=== PATIENT | female | born 1970 | race Hispanic/Latino ===

== ENCOUNTER 2018-11-13 15:39 | Emergency (ER) | payer SELFPAY ==
[~2018-11-13 15:39] MED LIST: Iopamidol 370 76% 100 ML VIAL ONE; Iopamidol 370 76% 50 ML VIAL FS ONE
[2018-11-13 16:35] LABS: #Lymphocytes 0.7 thou/uL (1.20-3.40); #Monocytes 0.3 thou/uL (0.11-0.59); #Neutrophils 8.2 thou/uL (1.40-6.50); %Basophils 0.3 % (0.0-1.0); %Eosinophils 0.3 % (0.0-10.0); %Lymphocytes 7.7 % (21.0-51.0); %Monocytes 3.3 % (0.0-10.0); %Neutrophils 88.5 % (42.0-75.0); Hemoglobin 15.3 g/dL (12.0-16.0); Mean Corpuscular Hemoglobin 29.9 pg (27.0-31.0); Mean Platelet Volume 7.6 fL (7.4-10.4); Platelet Count 229 thou/uL (130-400); RBC Distribution Width 12.8 % (11.5-14.5); Red Blood Cell (RBC) Count 5.12 mill/uL (4.20-5.40); White Blood Cell (WBC) Count 9.3 thou/uL (4.8-10.8)
[2018-11-13 16:59] LABS: ALT (SGPT) 41 U/L (8-55); AST (SGOT) 32 U/L (5-34); Albumin 4.2 g/dL (3.5-5.0); Alkaline Phosphatase 101 U/L (40-150); Anion Gap 13 mmol/L (10-20); BUN (Urea Nitrogen) 16 mg/dL (7.0-18.7); Bilirubin, Total 0.5 mg/dL (0.2-1.2); Calc. Creatinine Clearance 0 mL/min (70-130); Calcium 9.6 mg/dL (7.8-10.44); Carbon Dioxide 24 mmol/L (22-29); Chloride 104 mmol/L (98-107); Estimated GFR-MDRD Greater than 90; Globulin 4.3 g/dL (2.4-3.5); Glucose 137 mg/dL (70-105); Lipase 10 U/L (8-78); Potassium 4.1 mmol/L (3.5-5.1); Protein, Total 8.5 g/dL (6.0-8.3); Sodium 137 mmol/L (136-145)
[2018-11-13] MEDS ORDERED: Ondansetron PF 4 MG/2 ML Vial ONE (17:02)
[2018-11-13] MEDS ORDERED: Morphine 4 MG/ML VIAL ONE ×2 (17:02→18:01)
[2018-11-13] MEDS ORDERED: metroNIDAZOLE 250 MG TAB ONE (19:35)
[2018-11-13] MEDS ORDERED: Ciprofloxacin 500 MG TAB ONE (19:35)
[2018-11-13] MEDS ORDERED: traMADol HCl 50 MG TAB ONE (19:40)
--- NOTE | 2018-11-13 20:04 | CT ---
CT ABDOMEN WITH CONTRAST CT PELVIS WITH CONTRAST: DATE: 11/13/2018 TIME: 7:12 p.m. HISTORY: A 48-year-old female with acute onset of abdominal pain. COMPARISON: Noncontrast CT of 05/02/2014. TECHNIQUE: IV injection of iodinated contrast media: Isovue-370 100 mL. Oral contrast media: Isovue p.o. FINDINGS: Multiple diverticula throughout the ascending, transverse, descending, and sigmoid colon, especially in the sigmoid colon. Again noted is the region of fat stranding abutting the sigmoid colon on the l eft side of the lower portion of the pelvic cavity. The appearance is very similar, almost identical , to that of the previous CT. Therefore, although this could represent edema, the other possibility is that this could represent scar tissue. There is no abscess or extraluminal gas. No evidence of a ppendicitis. The urinary bladder, bilateral kidneys, abdominal aorta, adrenal glands, pancreas, sple en, and liver appear normal. Cholecystectomy clips in the gallbladder fossa. No small bowel dilatio n. No consolidation or pleural effusion at the lung bases. No pneumoperitoneum or ascites. The toya geoff is absent. IMPRESSION: 1. Pancolonic diverticulosis. 2. Region of fat stranding in the left hemipelvis could either represent a recurrent episode of colo lindsay diverticulitis or scar tissue. 3. Status post hysterectomy and cholecystectomy. RAO Burrows POS: CHANTELLE
--- NOTE | 2018-11-16 10:50 | EKG ---
Test Reason : ER INDICATION Blood Pressure : / mmHG Vent. Rate : 084 BPM Atrial Rate : 084 BPM P-R Int : 166 ms QRS Dur : 098 ms QT Int : 394 ms P-R-T Axes : 026 031 025 degrees QTc Int : 465 ms Normal sinus rhythm Normal ECG Confirmed by RENATO VANN DO ([id number]), business editor KEVIN BOATENG ([id number]) on 11/16/2018 10:50:15 AM Referred By: Confirmed By:RENATO VANN DO
== END 2018-11-13 19:50 | disposition home or self-care (01) ==
LOC: ERS 15:39
DX: K57.32 Diverticulitis of large intestine without perforation or abscess without bleeding (principal); E03.9 Hypothyroidism, unspecified; I10 Essential (primary) hypertension
CPT/HCPCS: 36415; 74177; 80053; 83690; 85025; 93005; 96361; 96374; 96375; 96376; J2270; J2405

== ENCOUNTER 2019-07-19 16:50 | Inpatient (IN) | payer SELFPAY ==
[2019-07-19] MEDS ORDERED: Lidocaine 1% (PF) 30 ML VIAL ONE (17:37)
--- NOTE | 2019-07-19 17:37 | RAD ---
3 views right hand: 07/19/2019 COMPARISON: None HISTORY: Finger injury FINDINGS: There is partial amputation involving the distal aspect of the third finger. There is a pro minent distal soft tissue defect and there has been partial amputation of the distal aspect of the third distal phalanx. No dislocation. IMPRESSION: Partial amputation involving the distal aspect of the third finger involving the soft tis sues and tip of the third distal phalanx.
[2019-07-19] MEDS ORDERED: Adacel (T-DAP) 0.5 ML SYRINGE ONE (18:07)
[2019-07-19] MEDS ORDERED: Bupivacaine PF 0.5% 30 ML VIAL ONE (18:27)
[2019-07-19] MEDS ORDERED: Bacitracin Zinc Ointment 30 gm TUBE ONE (18:27)
[2019-07-19] MEDS ORDERED: Sodium Chloride 0.9% 100 ML ONE (18:33)
[2019-07-19] MEDS ORDERED: Piperacillin/Tazobactam 4.5 GM VIAL ONE (18:33)
[2019-07-19] MEDS ORDERED: Fentanyl 100 MCG/2 ML VIAL ONE ×2 (18:42→21:34)
[2019-07-19] MEDS ORDERED: Bisacodyl 10 MG SUPP PR PRN (19:25)
[2019-07-19] MEDS ORDERED: Milk Of Magnesia 30 ML UDCUP PO PRN (19:25)
[2019-07-19] MEDS ORDERED: Promethazine HCl 25 MG/ML VIAL IM PRN ×2 (19:25→20:49)
[2019-07-19] MEDS ORDERED: Fentanyl 100 MCG/2 ML VIAL SLOW IVP PRN (19:25)
[2019-07-19] MEDS ORDERED: Ondansetron PF 4 MG/2 ML Vial IV PRN (19:25)
[2019-07-19] MEDS ORDERED: Acetaminophen 325 MG TAB PO PRN (19:25)
[2019-07-19] MEDS ORDERED: Meperidine HCl/PF 25 MG/ML VIAL IM PRN (19:29)
[2019-07-19] MEDS ORDERED: Communication Order-Pharmacy FS SCH ×2 (19:30)
[2019-07-19] MEDS ORDERED: HYDROmorphone 2 MG/ML VIAL SLOW IVP PRN (20:49)
[2019-07-19] MEDS ORDERED: PACU-Morphine 4MG/ML VIAL SLOW IVP PRN (20:49)
[2019-07-19] MEDS ORDERED: Promethazine HCl 25 MG/ML VIAL SLOW IVP PRN (20:49)
[2019-07-19] MEDS ORDERED: Ondansetron HCl/PF 4 MG/2 ML Vial IVP PRN (20:49)
[2019-07-19] MEDS ORDERED: Aspirin 81 mg Enteric Coated Tablet PO SCH (21:00)
[2019-07-19] MEDS ORDERED: Metoprolol Tartrate 5 MG/5 ML VIAL ONE (21:42)
--- NOTE | 2019-07-19 22:30 | OP ---
DATE OF PROCEDURE: 07/19/2019 PREOPERATIVE DIAGNOSES: 1. Open fracture with amputation right middle finger at the midportion of the distal phalanx. 2. Wound with nail involvement, same area. PROCEDURES PERFORMED: 1. Debridement, bone. 2. Debridement, wound and material associated with open fracture. 3. Bone shortening, 3 mm. 4. Nail bed repair. 5. 2 x 1 cm full-thickness skin graft. INDICATIONS: The patient had a bite wound from a relative, with open injury in order to have decreased rate of infection, possibly salvage the nail itself and the digit, early intervention was indicated. There was no gross contamination seen. TOURNIQUET TIME: 25 minutes. BLOOD LOSS: Less than 10 mL. DESCRIPTION OF PROCEDURE: After successful general LMA technique, the limb was prepped and draped. The patient had the possible donor site antecubital fossa injected over 2.5 cm area in width, and we did a 10 mL of 0.5% Marcaine block at metacarpophalangeal of this middle finger. We then exsanguinated the limb, inflated tourniquet to 250 mmHg pressure and began to inspect the wound. There was a hematoma covering area of bone approximately 3 mm wide by 0.5 mm deep, so we found the nail bed here and we debrided this with a rongeur until the nail bone edge was appropriate. Then, there was a longitudinal laceration of nail bed and we prepared this. We then used a Pulsavac to finish the debridement after already using the [place] blade, curette, rongeur, and excisional technique to achieve a coverage that was clean and the wound that was clean. There was no particles seen in the wound itself. Once we finished 3 L normal saline Pulsavac irrigation, we then inspected the area and found no further contamination. We then finished removing some excess soft tissue, inspecting the nail and found it to be fine, and then we pulled fat up over the bone edge up to the nail bed that was exposed and sutured this with interrupted 4-0 Monocryl. Once we had done this, we measured the remaining open wound. It was approximately 2 cm x 8 mm, so we harvested a 2 x 1 cm graft elliptical-shaped from the antecubital fossa. We closed this with a deep dermal fold of 4-0 Monocryl and then used Dermabond for the epidermal closure. We then took this graft, defatted it, placed it over the wound, secured it first on the each end with a 4-0 nylon, which would be used as a bolster suture later and then made the repair complete by running a 6-0 chromic over that, and placed bacitracin and Adaptic next to the wound and mineral oil soaked cotton balls were tied down with 4-0 nylons on to the graft site. The hole site was completely covered, we then placed bacitracin and then placed Adaptic only on the donor site, 4x4s, Kerlix, and only a soft dressing with 2 Alpesh wraps on the finger as well as the forearm wound and the patient left the operating room without evidence of anesthetic or operative complication. Job ID: [id number]
[2019-07-19] MEDS: Morphine 4 MG/ML VIAL SLOW IVP PRN (23:10)
[2019-07-19] MEDS: Ketorolac Tromethamine 30 MG/ML VIAL IVP SCH (23:16)
[2019-07-20] MEDS: Morphine 4 MG/ML VIAL SLOW IVP PRN (01:26)
[2019-07-20] MEDS: Sodium Chloride 0.9% 1,000 ML IV SCH ×3 (01:30→15:08)
[2019-07-20] MEDS: HYDROcodone/Acetaminophen 5/325 mg Tablet PO PRN ×5 (01:32→20:45)
[2019-07-20] MEDS: Aspirin 81 mg Enteric Coated Tablet PO SCH ×3 (01:48→20:45)
[2019-07-20] MEDS: Vancomycin HCl 1.5 GM in Sodium Chloride 0.9% 250 ML 300 ML IVPB SCH ×2 (01:57→13:57)
[2019-07-20 02:08] VITALS: BMI 42.4
[2019-07-20] MEDS: Ketorolac Tromethamine 30 MG/ML VIAL IVP SCH ×4 (05:11→23:52)
[2019-07-20 05:50] LABS: #Lymphocytes 0.7 thou/uL (1.20-3.40); #Monocytes 0.1 thou/uL (0.11-0.59); #Neutrophils 3.9 thou/uL (1.40-6.50); %Eosinophils 0.5 % (0.0-10.0); %Lymphocytes 14.5 % (21.0-51.0); %Monocytes 2.1 % (0.0-10.0); %Neutrophils 82.9 % (42.0-75.0); Hemoglobin 13.1 g/dL (12.0-16.0); Mean Corpuscular HGB CONC 33.4 g/dL (32.0-36.0); Mean Corpuscular Hemoglobin 30.2 pg (27.0-31.0); Mean Corpuscular Volume 90.5 fL (78.0-98.0); Platelet Count 193 thou/uL (130-400); RBC Distribution Width 12.8 % (11.5-14.5); Red Blood Cell (RBC) Count 4.33 mill/uL (4.20-5.40); White Blood Cell (WBC) Count 4.7 thou/uL (4.8-10.8)
[2019-07-20] MEDS: traMADol HCl 50 MG TAB PO PRN ×2 (08:50→23:53)
[2019-07-20] MEDS ORDERED: TETANUS AND DIPHTHERIA TOX/PF 0.5 ML DISP.SYRIN IM SCH (09:00)
[2019-07-21] MEDS: Vancomycin HCl 1.5 GM in Sodium Chloride 0.9% 250 ML 300 ML IVPB SCH ×2 (02:42→13:02)
[2019-07-21] MEDS: HYDROcodone/Acetaminophen 5/325 mg Tablet PO PRN ×3 (05:19→17:28)
[2019-07-21] MEDS: Sodium Chloride 0.9% 1,000 ML IV SCH ×2 (05:21→11:10)
[2019-07-21] MEDS: Aspirin 81 mg Enteric Coated Tablet PO SCH (09:54)
[2019-07-21] MEDS: Morphine 4 MG/ML VIAL SLOW IVP PRN (13:01)
[2019-07-21 16:11] VITALS: BP 115/75; TEMP 99.2
== END 2019-07-21 18:14 | disposition home or self-care (01) | DRG 906 ==
LOC: ERS 16:50 → SDC/OP 20:20 → SURG A 21:48
PROVIDERS: ADMIT Orthopaedic Surgery Hand Surgery; ATTEND Orthopaedic Surgery Hand Surgery
PROC: 0HRFX73 Replacement of Right Hand Skin with Autologous Tissue Substitute, Full Thickness, External Approach (ICD-10-PCS; principal; 2019-07-19)
PROC: 0PBT0ZZ Excision of Right Finger Phalanx, Open Approach (ICD-10-PCS; 2019-07-19)
PROC: 0HQQXZZ Repair Finger Nail, External Approach (ICD-10-PCS; 2019-07-19)
PROC: 0HBDXZZ Excision of Right Lower Arm Skin, External Approach (ICD-10-PCS; 2019-07-19)
DX: S68.122A Partial traumatic metacarpophalangeal amputation of right middle finger, initial encounter (principal); I10 Essential (primary) hypertension; W50.3XXA Accidental bite by another person, initial encounter; E03.9 Hypothyroidism, unspecified; Z90.49 Acquired absence of other specified parts of digestive tract; Z90.710 Acquired absence of both cervix and uterus
CPT/HCPCS: 36415; 64450; 80202; 85025; 90471; 90715; 90732; G0009; J1885; J2001; J2270; J2543; J3010; J3370; J3490; J7050; S0020

== ENCOUNTER 2020-04-19 04:01 | Emergency (ER) | payer OTHER, SELFPAY ==
[2020-04-19 04:50] LABS: #Eosinphils 0.1 thou/uL (0.0-0.7); #Monocytes 0.8 thou/uL (0.11-0.59); #Neutrophils 6.8 thou/uL (1.40-6.50); %Basophils 0.3 % (0.0-1.0); %Eosinophils 0.6 % (0.0-10.0); %Lymphocytes 20.6 % (21.0-51.0); %Monocytes 8.4 % (0.0-10.0); Hemoglobin 12.9 g/dL (12.0-16.0); Mean Corpuscular HGB CONC 33.6 g/dL (32.0-36.0); Mean Corpuscular Hemoglobin 29.6 pg (27.0-31.0); Mean Corpuscular Volume 87.9 fL (78.0-98.0); Mean Platelet Volume 7.9 fL (7.4-10.4); Platelet Count 201 thou/uL (130-400); RBC Distribution Width 12.8 % (11.5-14.5); Red Blood Cell (RBC) Count 4.36 mill/uL (4.20-5.40); White Blood Cell (WBC) Count 9.7 thou/uL (4.8-10.8)
[2020-04-19 05:02] LABS: Bilirubin Negative (Negative); Blood, Urine Trace (Negative); Clarity Clear (Clear); Glucose, Urine (Dipstick) Normal (Negative); Leukocyte Negative Leu/uL (Negative); Nitrite Negative (Negative); Protein, Urine (Dipstick) Negative (Neg-Trace); RBC/HPF 0-3 HPF (0-3); Squamous Epithelial 0-3 HPF (0-3); WBC/HPF 0-3 HPF (0-3)
[2020-04-19 05:04] LABS: ALT (SGPT) 18 U/L (8-55); AST (SGOT) 17 U/L (5-34); Alkaline Phosphatase 81 U/L (40-110); Anion Gap 13 mmol/L (10-20); BUN (Urea Nitrogen) 9 mg/dL (7.0-18.7); Bilirubin, Total 0.5 mg/dL (0.2-1.2); Calc. Creatinine Clearance 0 mL/min (70-130); Calcium 8.7 mg/dL (7.8-10.44); Carbon Dioxide 24 mmol/L (22-29); Chloride 106 mmol/L (98-107); Estimated GFR-MDRD Greater than 90; Globulin 3.7 g/dL (2.4-3.5); Glucose 133 mg/dL (70-105); Lipase 5 U/L (8-78); Potassium 3.6 mmol/L (3.5-5.1); Protein, Total 7.7 g/dL (6.0-8.3); Sodium 139 mmol/L (136-145)
[2020-04-19 05:13] LABS: Bacteria/HPF 1+ HPF (None Seen)
[2020-04-19] MEDS ORDERED: Morphine 4 MG/ML VIAL ONE (05:25)
[2020-04-19] MEDS ORDERED: Ketorolac Tromethamine 30 MG/ML VIAL ONE (05:25)
[2020-04-19 05:44] LABS: BHCG - Serum Negative (NEGATIVE); Pregs Control Background? CLEAR/WHITE (CLR/WHITE); Pregs Control Bar Appear? YES (CONTROL BAR)
--- NOTE | 2020-04-19 12:10 | CT ---
CT OF THE ABDOMEN AND PELVIS WITHOUT IV CONTRAST: INDICATION: A 49-year-old female with lower abdominal pain and right-sided back pain. COMPARISON: Prior CT of the abdomen and pelvis dated 11/13/2018. FINDINGS: There is wall thickening and pericolonic inflammatory stranding with scattered with scattered diverti cula involving the sigmoid colon consistent with active noncomplicated sigmoid diverticulitis. There is mild free fluid in the pelvis. There is a normal appendix in the right lower quadrant. No renal or ureteral calculus is evident. There is a small phlebolith within the right gonadal vein. Gallbladder is surgically absent. Unopacified liver, pancreas, adrenal glands, spleen, and kidneys appear within normal limits. No definite acute osseous abnormality is evident. IMPRESSION: Findings of noncomplicated sigmoid diverticulitis. POS: BH
== END 2020-04-19 07:33 | disposition home or self-care (01) ==
LOC: ERS 04:01
DX: K57.30 Diverticulosis of large intestine without perforation or abscess without bleeding (principal); E03.9 Hypothyroidism, unspecified; I10 Essential (primary) hypertension
CPT/HCPCS: 36415; 74176; 80053; 81003; 81015; 83690; 84703; 85025; 96374; 96375; J1885; J2270

== ENCOUNTER 2020-06-17 15:53 | Observation (INO) | payer OTHER, SELFPAY ==
[~2020-06-17 15:53] MED LIST changes: -Iopamidol 370 76% 100 ML VIAL ONE; -Iopamidol 370 76% 50 ML VIAL FS ONE; +Iopamidol-370 76% 500 ML 1 ML ONE
[2020-06-17 16:35] LABS: #Eosinphils 0.1 thou/uL (0.0-0.7); #Monocytes 0.7 thou/uL (0.11-0.59); #Neutrophils 6.4 thou/uL (1.40-6.50); %Basophils 0.2 % (0.0-1.0); %Eosinophils 0.7 % (0.0-10.0); %Lymphocytes 22.1 % (21.0-51.0); %Monocytes 7.7 % (0.0-10.0); %Neutrophils 69.2 % (42.0-75.0); Hemoglobin 13.6 g/dL (12.0-16.0); Mean Corpuscular HGB CONC 32.6 g/dL (32.0-36.0); Mean Corpuscular Hemoglobin 28.8 pg (27.0-31.0); Mean Corpuscular Volume 88.5 fL (78.0-98.0); Mean Platelet Volume 8.8 fL (7.4-10.4); Platelet Count 203 thou/uL (130-400); Red Blood Cell (RBC) Count 4.73 mill/uL (4.20-5.40); White Blood Cell (WBC) Count 9.2 thou/uL (4.8-10.8)
[2020-06-17 17:06] LABS: ALT (SGPT) 17 U/L (8-55); AST (SGOT) 23 U/L (5-34); Albumin 3.8 g/dL (3.5-5.0); Alkaline Phosphatase 92 U/L (40-110); Anion Gap 11 mmol/L (10-20); BUN (Urea Nitrogen) 14 mg/dL (7.0-18.7); Bilirubin, Total 0.3 mg/dL (0.2-1.2); Calc. Creatinine Clearance 0 mL/min (70-130); Calcium 8.7 mg/dL (7.8-10.44); Carbon Dioxide 24 mmol/L (22-29); Chloride 104 mmol/L (98-107); Estimated GFR-MDRD Greater than 90; Globulin 4.2 g/dL (2.4-3.5); Glucose 132 mg/dL (70-105); Potassium 4.4 mmol/L (3.5-5.1); Sodium 135 mmol/L (136-145)
--- NOTE | 2020-06-17 17:12 | CT ---
CT angiogram chest with IV contrast and 3-D imaging CT arteriogram abdomen and pelvis with IV contrast and 3-D imaging HISTORY: Chest and abdomen pain. Radiation to the back. COMPARISON: 04/19/2020. FINDINGS: Tiny nonspecific subpleural nodule within the anterolateral aspect of the right upper lobe. No mediastinal adenopathy or pleural fluid. Gallbladder is surgically absent. No evidence of bowel obstruction or inflammation. Solid organs of the abdomen are intact. Prominent posterior disc bulge at the lumbosacral junction with significant central canal stenosis. P artial lumbarization of the fifth sacral segment. Inflammation and small amount of fluid within the pelvis surrounding a focal area of circumferential wall thickening involving the lower sigmoid colon. Extensive diverticula are apparent throughout the colon. No focal abscess. No free air. Uterus is not visible. Likely surgically absent (versus atr ophy). Good contrast opacification pulmonary arteries and aorta. No evidence of dissection or other acute ab normality. Visceral arteries are patent. Accessory left renal artery to the superior pole noted. IMPRESSION : No acute vascular abnormalities are demonstrated. Acute distal sigmoid diverticulitis is similar in appearance to the 04/19/2020 study. Small amount of free fluid. No evidence of abscess.
--- NOTE | 2020-06-17 17:15 | RAD ---
RADIOGRAPH CHEST 1 VIEW: DATE: 06/17/2020 HISTORY: Chest pain FINDINGS: There are no airspace densities, pulmonary edema, pneumothorax, or cardiomegaly. The lateral costophr enic angles are sharp. IMPRESSION: No acute cardiopulmonary findings.
--- NOTE | 2020-06-17 17:18 | CT ---
CT OF THE BRAIN WITHOUT CONTRAST: 06/17/20 INDICATIONS: History of left sided facial numbness and facial droop. COMPARISON: Prior examination dated 06/10/13. FINDINGS: There is a small extra-axial calcified lesion overlying the left temporal lobe on image 17 of series 2 which is stable and likely reflecting a small meningioma. No acute infarct, hemorrhage or hydroceph alus is present. There is a prominent Virchow-Mehul space involving the inferior left globus pallidus . No midline shift or hydrocephalus is evident. Mastoid air cells and paranasal sinuses are clear. IMPRESSION: 1. No acute intracranial abnormality. 2. Stable small extra-axial meningioma overlying the left temporal lobe. POS: BH
[2020-06-17 18:14] LABS: Bacteria/HPF None Seen HPF (None Seen); Bilirubin Negative (Negative); Blood, Urine Negative (Negative); Clarity Clear (Clear); Glucose, Urine (Dipstick) Normal (Negative); Ketone, Urine Negative (Negative); Leukocyte 25 Leu/uL (Negative); Nitrite Negative (Negative); Protein, Urine (Dipstick) Negative (Neg-Trace); RBC/HPF 0-3 HPF (0-3); Specific Gravity, Urine 1.025 (1.002-1.036); Squamous Epithelial 0-3 HPF (0-3); Urobilinogen 6 mg/dL (Less than 2)
[2020-06-17] MEDS ORDERED: Morphine 4 MG/ML VIAL ONE (18:19)
[2020-06-17] MEDS ORDERED: Piperacillin/Tazobactam 4.5 GM VIAL ONE (18:19)
[2020-06-17 19:40] LABS: Troponin I Less than 0.010 ng/mL (< 0.028)
[2020-06-17] MEDS ORDERED: Acetaminophen 650 MG Suppository PR PRN (20:05)
[2020-06-17] MEDS ORDERED: Acetaminophen 325 MG TAB PO PRN (20:05)
--- NOTE | 2020-06-17 21:06 | PDOC.HHP ---
Hospitalist HPI - History of Present Illness Abdominal pain and chest pain History of Present Illness: Patient presents to the emergency department today with complaints of lower abdominal discomfort that has been severe. She was following up with her primary care physician today due to suprapubic discomfort. She had been placed on a course of antibiotics in March with Cipro and Flagyl due to diverticulitis which she did not complete. She states the pain has been ongoing for the last 3 days and significantly worse today. She states she feels as if she is unable to empty her bladder. She has discomfort when having a bowel movement and when urinating she experiences dysuria. She states she is only able to urinate small quantities at a time. She feels as if she is unable to empty her bladder fully. She states she feels like there is a sensation of having a ball in the lower abdomen. She denies any dysuria. In addition to this she began experiencing discomfort in her chest. She is unable to describe the type of pain she experienced with states that it was small areas of discomfort throughout her chest lasting minutes at a time. Reports feeling as if she cannot catch her breath when this happens her as if she cannot get comfortable. Patient states she has been experiencing blood in the stool for the last 3 months. She reported this to her primary care physician and was told this was likely associated with hemorrhoids given her history of constipation. Patient also complains of itching to the left side of her chest and her back as well as the backside of her neck. Denies starting any new antibiotics and states the itching has been ongoing for the last couple of days. She has not noted any rash or hives. Patient is a poor historian due having a significant amount of difficulty describing exactly how she has been feeling. Denies any nausea or vomiting. Denies hematemesis. Has not had any loose stools. Has not had any recent fevers chills or sweats. No shortness of breath. No cough or hemoptysis. All other review of systems are negative. Of note patient reportedly underwent work-up for possible CVA after presenting with right facial numbness and weakness 2 weeks ago. ED COURSE: The patient was given 324 mg of aspirin in the emergency department as well as nitro sublingual. EKG: demonstrates sinus tachycardia the rate of 107, DE 162, QRS of 94, QTC of 475, QRS axis XX 8 degrees with nonspecific T wave flattening in the inferior leads, axis is normal, conduction normal, ST segments normal. Nonspecific EKG. CXR: No acute cardiopulmonary findings. CT angiogram of the chest: showed no acute vascular abnormalities. Acute distal sigmoid diverticulitis similar in appearance to study done in March 2020. Small amount of free fluid. No evidence of abscess. Per ED notes the patient had described left-sided facial numbness and a facial droop at some time this morning, therefore underwent a CT of the brain which showed no acute intracranial abnormality. Stable small extra-axial meningioma overlying the left temporal lobe. For her severe abdominal discomfort she was given 4 mg of morphine. 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 Denies any illicit drug use. She is fully independent and lives with her . FAMILY HISTORY: Noncontributory ALLERGIES: No known drug allergies. CURRENT MEDICATIONS: Tramadol 50 mg p.o. daily Flagyl 500 mg p.o. twice a day Gabapentin 300 mg p.o. daily Citalopram 10 mg p.o. daily Cipro 500 mg p.o. Hospitalist ROS - Review of Systems All other systems reviewed; all pertinent +/- noted in HPI/Subj - Exam General Appearance: ill appearing (appears to be in some discomfort but NAD.) General - other findings: BP: 174/82, Pulse: 95, Resp: 20, O2 sat: 100 on (Room Air), Time: 06/17/2020 Eye: PERRL, anicteric sclera ENT: normocephalic atraumatic, no oropharyngeal lesions, moist mucosa Neck: supple, no lymphadenopathy Heart: RRR, no murmur, no gallops, no rubs, normal peripheral pulses Respiratory: CTAB, no wheezes, no rales, no ronchi, normal chest expansion, no tachypnea Gastrointestinal: soft (obese), non-distended, no rigidity, voluntary guarding Gastrointestinal - other findings: some discomfort in the suprapubic region Extremities: no edema Skin: normal turgor Skin - other findings: excoriations over left breast, no other rashes Neurological: cranial nerve grossly intact, no focal deficits Musculoskeletal: normal tone, normal strength, no muscle wasting Psychiatric: normal affect, normal behavior, A&O x 3 Hospitalist Results - Labs Result Diagrams: 06/17/20 16:06 06/17/20 16:06 Lab results: WBC 9.2 thou/uL (4.8-10.8) 06/17/20 16:06 Hgb 13.6 g/dL (12.0-16.0) 06/17/20 16:06 Hct 41.8 % (36.0-47.0) 06/17/20 16:06 MCV 88.5 fL (78.0-98.0) 06/17/20 16:06 Plt Count 203 thou/uL (130-400) 06/17/20 16:06 Neutrophils % 69.2 % (42.0-75.0) 06/17/20 16:06 Sodium 135 mmol/L (136-145) L 06/17/20 16:06 Potassium 4.4 mmol/L (3.5-5.1) 06/17/20 16:06 Chloride 104 mmol/L (98-107) 06/17/20 16:06 Carbon Dioxide 24 mmol/L (22-29) 06/17/20 16:06 BUN 14 mg/dL (7.0-18.7) 06/17/20 16:06 Creatinine 0.63 mg/dL (0.6-1.1) 06/17/20 16:06 Glucose 132 mg/dL (70-105) H 06/17/20 16:06 Calcium 8.7 mg/dL (7.8-10.44) 06/17/20 16:06 Total Bilirubin 0.3 mg/dL (0.2-1.2) 06/17/20 16:06 AST 23 U/L (5-34) 06/17/20 16:06 ALT 17 U/L (8-55) 06/17/20 16:06 Alkaline Phosphatase 92 U/L (40-110) 06/17/20 16:06 Troponin I Less than 0.010 ng/mL (< 0.028) 06/17/20 19:05 Serum Total Protein 8.0 g/dL (6.0-8.3) 06/17/20 16:06 Albumin 3.8 g/dL (3.5-5.0) 06/17/20 16:06 Urine Ketones Negative mg/dL (Negative) 06/17/20 16:20 Urine Blood Negative (Negative) 06/17/20 16:20 Urine Nitrite Negative (Negative) 06/17/20 16:20 Ur Leukocyte Esterase 25 Germaine/uL (Negative) A 06/17/20 16:20 Urine RBC 0-3 HPF (0-3) 06/17/20 16:20 Urine WBC 4-6 HPF (0-3) A 06/17/20 16:20 Ur Squamous Epith Cells 0-3 HPF (0-3) 06/17/20 16:20 Urine Bacteria None Seen HPF (None Seen) 06/17/20 16:20 Hospitalist H&P A/P - Problem (1) Chest pain Code(s): R07.9 - CHEST PAIN, UNSPECIFIED Status: Acute (2) Abdominal pain Code(s): R10.9 - UNSPECIFIED ABDOMINAL PAIN Status: Acute (3) Diverticulitis Code(s): K57.92 - DVTRCLI OF INTEST, PART UNSP, W/O PERF OR ABSCESS W/O BLEED Status: Acute (4) Rectal bleeding Code(s): K62.5 - HEMORRHAGE OF ANUS AND RECTUM Status: Acute (5) Itching Code(s): L29.9 - PRURITUS, UNSPECIFIED Status: Acute (6) Dysuria Code(s): R30.0 - DYSURIA Status: Acute (7) Hypertension Code(s): I10 - ESSENTIAL (PRIMARY) HYPERTENSION Status: Chronic (8) Hypothyroidism Code(s): E03.9 - HYPOTHYROIDISM, UNSPECIFIED Status: Chronic - Plan Plan: Cardiac monitoring. Check electrolytes, lipid panel with AM labs, TSH. Consider stress test once GI issues resolved. Echo ordered. Monitor BP. Continue IV antibiotics. Consult GI re: rectal bleeding x 3 months. Has never had a colonoscopy. Obtain post void bladder scan to assess for retention vs. dehydration as cause for decreased urine output. Initiate IV hydration. GI Prophylaxis with Famotidine. DVT prophylaxis with mechanical SCDs. ADDENDUM: Discussed with Dr. Perea who advised no indication for consult, as patient unable to have colonscopy done until diverticulitis flare resolves. Could be done as an outpatient.
[2020-06-17 21:33] VITALS: BMI 42.6
[2020-06-17] MEDS: Sodium Chloride 0.9% 1,000 ML IV SCH (21:33)
[2020-06-17] MEDS: metroNIDAZOLE 500 MG in Premix Bag 1 BAG IVPB SCH (21:40)
[2020-06-17] MEDS: Famotidine/PF 20 mg/2ml Vial SLOW IVP SCH (21:41)
[2020-06-17] MEDS: Morphine 2 MG/ML VIAL SLOW IVP PRN (21:47)
[2020-06-17] MEDS ORDERED: diphenhydrAMINE 25 MG CAP PO SCH (22:00)
[2020-06-18 04:54] LABS: #Eosinphils 0.1 thou/uL (0.0-0.7); #Lymphocytes 1.7 thou/uL (1.20-3.40); #Monocytes 0.6 thou/uL (0.11-0.59); %Basophils 0.1 % (0.0-1.0); %Eosinophils 1.2 % (0.0-10.0); %Lymphocytes 22.6 % (21.0-51.0); %Monocytes 7.9 % (0.0-10.0); %Neutrophils 68.2 % (42.0-75.0); Hemoglobin 12.4 g/dL (12.0-16.0); Mean Corpuscular HGB CONC 33.1 g/dL (32.0-36.0); Mean Corpuscular Hemoglobin 29.4 pg (27.0-31.0); Mean Corpuscular Volume 88.9 fL (78.0-98.0); Mean Platelet Volume 7.5 fL (7.4-10.4); Platelet Count 216 thou/uL (130-400); RBC Distribution Width 12.7 % (11.5-14.5); Red Blood Cell (RBC) Count 4.23 mill/uL (4.20-5.40); White Blood Cell (WBC) Count 7.3 thou/uL (4.8-10.8)
[2020-06-18 05:17] LABS: Anion Gap 12 mmol/L (10-20); BUN (Urea Nitrogen) 9 mg/dL (7.0-18.7); Calc. Creatinine Clearance 225 mL/min (70-130); Calcium 8.5 mg/dL (7.8-10.44); Carbon Dioxide 26 mmol/L (22-29); Cardiac Risk 4.1 (Less than 4.5); Chloride 104 mmol/L (98-107); Cholesterol 128 mg/dl (< 200 Desired); Estimated GFR-MDRD Greater than 90; Glucose 120 mg/dL (70-105); HDL Cholesterol 31 mg/dL (>60 Neg Risk); LDL Cholesterol, Calculated 80 mg/dL; Potassium 3.8 mmol/L (3.5-5.1); Sodium 138 mmol/L (136-145); Triglycerides 83 mg/dL (Less than 150)
[2020-06-18] MEDS: metroNIDAZOLE 500 MG in Premix Bag 1 BAG IVPB SCH ×3 (05:54→22:20)
[2020-06-18] MEDS: Levothyroxine Sodium 100 MCG TAB PO SCH (05:55)
[2020-06-18] MEDS: Morphine 2 MG/ML VIAL SLOW IVP PRN (06:07)
[2020-06-18] MEDS: Famotidine/PF 20 mg/2ml Vial SLOW IVP SCH (09:58)
[2020-06-18] MEDS: Lisinopril/Hydrochlorothiazide 20 mg/12.5 mg Tablet PO SCH (09:58)
[2020-06-18] MEDS: Citalopram 10 MG TAB PO SCH (09:58)
[2020-06-18] MEDS: Gabapentin 300 MG CAP PO SCH ×2 (09:59→19:59)
[2020-06-18] MEDS ORDERED: diphenhydrAMINE 25 MG CAP PO PRN (11:04)
[2020-06-18] MEDS: traMADol HCl 50 MG TAB PO PRN ×2 (12:49→18:58)
[2020-06-18] MEDS: Sodium Chloride 0.9% 1,000 ML IV SCH ×2 (12:52→21:44)
[2020-06-18 13:54] LABS: SARS-CoV-2 MS2 Positive; SARS-CoV-2 N Gene Negative; SARS-CoV-2 S Gene Negative; SARS-CoV-2 by NAA Not Detected (NotDetected); SARS-CoV-2 orf1ab Negative
--- NOTE | 2020-06-18 15:51 | PDOC.HOSPP ---
- Subjective Encounter Date: 06/18/20 Encounter Time: 13:30 Subjective: Patient seen and examined for diverticulitis with chest pain. Chest discomfort improved. No nausea, vomiting, diaphoresis or syncope. Continues to have abdominal discomfort. No new episodes of GI bleeding. - Objective Vital Signs & Weight: Vital Signs (12 hours) Temp Pulse Resp BP BP Pulse Ox 06/18/20 15:33 98.2 F 80 20 110/67 94 L 06/18/20 11:39 97.8 F 75 18 127/74 95 06/18/20 09:58 131/85 06/18/20 07:25 97.7 F 77 18 131/85 98 06/18/20 04:33 79 18 136/73 97 06/18/20 04:17 77 Weight Weight 256 lb 7 oz I&O: 06/17/20 06/18/20 06/19/20 06:59 06:59 06:59 Intake Total 550 Output Total 2100 Balance -1550 Result Diagrams: 06/18/20 04:33 06/18/20 04:33 Radiology Reviewed by me: Yes (CTacute sigmoid diverticulitis) EKG Reviewed by me: Yes (Sinus rhythm on telemetry) Hospitalist ROS - Review of Systems Respiratory: denies: cough, dry, shortness of breath, hemoptysis, SOB with excertion, pleuritic pain, sputum, wheezing, other Genitourinary: denies: dysuria, frequency, incontinence, hematuria, retention, other - Medication Medications: Active Medications Generic Name Dose Route Start Last Admin Trade Name Freq PRN Reason Stop Dose Admin Acetaminophen 650 mg 06/17/20 20:05 06/18/20 09:58 Tylenol PO 650 mg Q4H PRN Administration Headache/Fever/Mild Pain (1-3) Citalopram Hydrobromide 10 mg 06/18/20 09:00 06/18/20 09:58 Celexa PO 10 mg DAILY ROB Administration Diphenhydramine HCl 25 mg 06/18/20 11:04 06/18/20 11:20 Benadryl PO 25 mg Q6H PRN Administration Itching & Insomnia Gabapentin 300 mg 06/18/20 09:00 06/18/20 09:59 Neurontin PO 300 mg BID ROB Administration Lisinopril/HCTZ 1 tab 06/18/20 09:00 06/18/20 09:58 Prinizide 20-12.5 PO 1 tab DAILY ROB Administration Sodium Chloride 1,000 mls @ 65 mls/hr 06/17/20 20:15 06/18/20 12:52 Normal Saline 0.9% IV Not Given .[id number] ROB Ciprofloxacin/Dextrose 400 mg/ 200 mls @ 200 mls/hr 06/18/20 09:00 06/18/20 09:59 Device IVPB 200 mls Q12HR ROB Administration Metronidazole 500 mg/ Device 100 mls @ 100 mls/hr 06/17/20 22:00 06/18/20 05: 54 IVPB 100 mls Q8HR ROB Administration Levothyroxine Sodium 200 mcg 06/18/20 06:00 06/18/20 05:55 Synthroid PO 200 mcg 0600 ROB Administration Tramadol HCl 50 mg 06/18/20 11:05 06/18/20 12:49 Ultram PO 50 mg Q4H PRN Administration Moderate Pain (4-6) - Exam General - other findings: In distress due to abdominal pain Neck: supple, symmetric, no JVD Heart: RRR, no gallops, no rubs, normal peripheral pulses Respiratory: no wheezes, no rales, no ronchi, normal chest expansion Gastrointestinal: soft, normal bowel sounds, no guarding, no rigidity Gastrointestinal - other findings: Tenderness in the lower quadrant Neurological: no new deficit Psychiatric: normal affect, A&O x 3 Hosp A/P - Plan DVT proph w/SCDs Acute sigmoid diverticulitis Chest discomfortacute coronary syndrome ruled out Rectal bleedingresolved Hypertension Hypothyroidism Morbid obesity with a BMI of 42.7 Hyponatremia Plan: Abdominal pain still uncontrolled. Patient received 1 dose of morphine earlier. We will continue IV ciprofloxacin and Flagyl for now. Echocardiogram pending at this time. Add probiotic. Consult dietitian for dietary modification for diverticulosis. Continue levothyroxine and lisinopril. Continue gentle hydration. Discharge home once abdominal pain improves after echocardiogram.
[2020-06-18] MEDS: Famotidine 20 MG TAB PO SCH (19:59)
[2020-06-18] MEDS ORDERED: Ketorolac Tromethamine 30 MG/ML VIAL IVP SCH (21:15)
[2020-06-18] MEDS ORDERED: Ondansetron PF 4 MG/2 ML Vial IVP SCH (21:15)
[2020-06-18] MEDS ORDERED: Morphine 2 MG/ML VIAL SLOW IVP SCH (21:15)
[2020-06-18] MEDS ORDERED: Promethazine HCl 12.5 MG in Sodium Chloride 0.9% 50 ML IVPB SCH (21:30)
[2020-06-19] MEDS: Levothyroxine Sodium 100 MCG TAB PO SCH (05:31)
[2020-06-19] MEDS: traMADol HCl 50 MG TAB PO PRN (05:31)
[2020-06-19] MEDS: metroNIDAZOLE 500 MG in Premix Bag 1 BAG IVPB SCH (05:32)
[2020-06-19] MEDS: Lisinopril/Hydrochlorothiazide 20 mg/12.5 mg Tablet PO SCH (07:56)
[2020-06-19] MEDS: Famotidine 20 MG TAB PO SCH (07:56)
[2020-06-19] MEDS: Gabapentin 300 MG CAP PO SCH (07:57)
[2020-06-19] MEDS: Citalopram 10 MG TAB PO SCH (07:57)
[2020-06-19] MEDS ORDERED: Saccharomyces boulardii 250 MG CAP PO SCH (09:00)
[2020-06-19] MEDS ORDERED: Lisinopril/Hydrochlorothiazide 20 mg/12.5 mg Tablet PO SCH (10:00)
[2020-06-19] MEDS ORDERED: Acetaminophen/Codeine 30-300mg Tablet PO PRN (10:02)
[2020-06-19 11:18] VITALS: TEMP 98.5
[2020-06-19 13:30] VITALS: BP 135/89
--- NOTE | 2020-06-19 14:07 | DIS ---
DATE OF ADMISSION: 06/17/2020 DATE OF DISCHARGE: 06/19/2020 DISCHARGE DISPOSITION: Home. FOLLOWUP: 1. Follow up with [facility] in 1 week. 2. Follow up with GI Clinic as outpatient for colonoscopy. DISCHARGE MEDICATIONS: 1. Ciprofloxacin 500 mg b.i.d. for 5 days. 2. Flagyl 500 mg 3 times daily for 5 days. 3. Probiotics. All other home medications were left unchanged. The patient was counseled on dietary modification for diverticulitis. The patient was evaluated on the day of discharge. Denies any new complaints. Abdominal pain has significantly improved. Tolerating GI soft diet. BRIEF HOSPITAL COURSE: The patient is a 49-year-old female, who presented to the emergency room with abdominal and chest discomfort. Her workup was consistent with acute sigmoid diverticulitis, which was managed conservatively. She tolerated clear liquid diet and has been transitioned to GI soft diet. She was counseled on dietary modification for diverticulosis. IV antibiotics have been transitioned to oral. The patient had some atypical chest discomfort on admission. Her troponins remain negative. An echocardiogram was performed that showed ejection fraction 50% to 55% with moderate mitral regurgitation, mild tricuspid regurgitation, and mild pulmonic regurgitation. She will benefit from a stress test as outpatient once acute GI issues resolved. She is pain free at the time of discharge. Weight loss was recommended. FINAL DIAGNOSES: 1. Acute distal sigmoid diverticulitis. A colonoscopy as outpatient is recommended. 2. Morbid obesity with a BMI of 42.7. 3. Chest discomfort, atypical. Acute coronary syndrome ruled out. 4. Questionable rectal bleeding, resolved. 5. Hypertension. 6. Hypothyroidism. 7. Hyponatremia. The patient understands the above plan of care. Job ID: [id number]
[2020-06-20] MEDS ORDERED: Lisinopril/Hydrochlorothiazide 20 mg/12.5 mg Tablet PO SCH (09:00)
--- NOTE | 2020-06-26 15:32 | EKG ---
Test Reason : Blood Pressure : / mmHG Vent. Rate : 107 BPM Atrial Rate : 107 BPM P-R Int : 162 ms QRS Dur : 094 ms QT Int : 356 ms P-R-T Axes : 022 028 011 degrees QTc Int : 475 ms Sinus tachycardia Nonspecific T wave abnormality Abnormal ECG Confirmed by RENATO VANN DO ([id number]), video effects editor KEVIN BOATENG ([id number]) on 06/26/2020 3:32:39 PM Referred By: Confirmed By:RENATO VANN DO
== END 2020-06-19 13:31 | disposition home or self-care (01) ==
LOC: ERS 15:53 → 2SW 18:30
PROVIDERS: ADMIT Internal Medicine; ATTEND Internal Medicine
DX: K57.33 Diverticulitis of large intestine without perforation or abscess with bleeding (principal); R07.89 Other chest pain; I10 Essential (primary) hypertension; E03.9 Hypothyroidism, unspecified; E87.1 Hypo-osmolality and hyponatremia; I08.1 Rheumatic disorders of both mitral and tricuspid valves; E66.01 Morbid (severe) obesity due to excess calories; Z68.41 Body mass index [BMI] 40.0-44.9, adult; Z79.899 Other long term (current) drug therapy; Z20.828 Contact with and (suspected) exposure to other viral communicable diseases
CPT/HCPCS: 36415; 70450; 71045; 71275; 72191; 74175; 80048; 80053; 80061; 81003; 81015; 83735; 83880; 84443; 84484; 85025; 87635; 93005; 93306; 94760; 96361; 96365; 96366; 96367; 96375; 96376; G0378; J0744; J2270; J2543; J2550; Q0163; Q9967; S0028; U0003

== ENCOUNTER 2020-09-12 14:23 | Observation (INO) | payer SELFPAY ==
[2020-09-12 15:14] LABS: Bacteria/HPF None Seen HPF (None Seen); Bilirubin Negative (Negative); Blood, Urine 1+ (Negative); Clarity Clear (Clear); Glucose, Urine (Dipstick) Normal (Negative); Ketone, Urine Negative (Negative); Leukocyte 25 Leu/uL (Negative); Nitrite Negative (Negative); Protein, Urine (Dipstick) Negative (Neg-Trace); RBC/HPF 0-3 HPF (0-3); Specific Gravity, Urine 1.022 (1.002-1.036); Squamous Epithelial 0-3 HPF (0-3); Urobilinogen Normal mg/dL (Less than 2); WBC/HPF 0-3 HPF (0-3); pH, Urine 5.5 (5.0-9.0)
[2020-09-12 15:15] LABS: #Eosinphils 0.1 thou/uL (0.0-0.7); #Lymphocytes 1.7 thou/uL (1.20-3.40); #Monocytes 0.6 thou/uL (0.11-0.59); %Basophils 0.2 % (0.0-1.0); %Eosinophils 1.4 % (0.0-10.0); %Lymphocytes 20.4 % (21.0-51.0); %Monocytes 6.7 % (0.0-10.0); %Neutrophils 71.3 % (42.0-75.0); Hemoglobin 12.8 g/dL (12.0-16.0); Mean Corpuscular HGB CONC 33.5 g/dL (32.0-36.0); Mean Corpuscular Volume 89.5 fL (78.0-98.0); Mean Platelet Volume 8.2 fL (7.4-10.4); Platelet Count 249 thou/uL (130-400); RBC Distribution Width 13.4 % (11.5-14.5); Red Blood Cell (RBC) Count 4.27 mill/uL (4.20-5.40); White Blood Cell (WBC) Count 8.4 thou/uL (4.8-10.8)
--- NOTE | 2020-09-12 15:23 | RAD ---
Exam: Chest one view HISTORY:Abdominal pain Comparison: 06/17/2020 FINDINGS: Cardiac silhouette: Normal Aorta: Unremarkable Pulmonary vessels: Normal Costophrenic angles: Clear LUNGS: No masses or consolidation. Pneumothorax: None Osseous abnormalities: None IMPRESSION: No acute cardiopulmonary process.
[2020-09-12 15:24] LABS: ALT (SGPT) 16 U/L (8-55); AST (SGOT) 17 U/L (5-34); Albumin 3.8 g/dL (3.5-5.0); Alkaline Phosphatase 83 U/L (40-110); Anion Gap 15 mmol/L (10-20); BUN (Urea Nitrogen) 7 mg/dL (9.8-20.1); Bilirubin, Total 0.4 mg/dL (0.2-1.2); Calc. Creatinine Clearance 0 mL/min (70-130); Calcium 8.9 mg/dL (7.8-10.44); Carbon Dioxide 21 mmol/L (22-29); Chloride 107 mmol/L (98-107); Estimated GFR-MDRD Greater than 90; Globulin 4.2 g/dL (2.4-3.5); Glucose 119 mg/dL (70-105); Potassium 3.8 mmol/L (3.5-5.1); Sodium 139 mmol/L (136-145)
[2020-09-12] MEDS ORDERED: Iopamidol-370 76% 500 ML 1 ML ONE (16:06)
[2020-09-12] MEDS ORDERED: Morphine 4 MG/ML VIAL ONE ×2 (16:12→19:54)
[2020-09-12] MEDS ORDERED: Ondansetron PF 4 MG/2 ML Vial ONE (16:12)
--- NOTE | 2020-09-12 16:51 | CT ---
CT Abdomen Pelvis W Con: 09/12/2020 4:29 PM CLINICAL INFORMATION: Abdominal pain and constipation COMPARISON: 11/13/2018, 05/02/2014 TECHNIQUE: Multiple contiguous axial images were obtained and a CT of the abdomen and pelvis with IV contrast. C oronal and sagittal reformats were performed. FINDINGS: Lower Chest: within normal limits. Abdomen: Liver: within normal limits. Bile Ducts: Normal caliber. Gallbladder: Removed Pancreas: within normal limits. Spleen: within normal limits. Adrenals: within normal limits. Kidneys: within normal limits. Pelvis: Reproductive Organs: Status post hysterectomy. Ureters: within normal limits. Bladder: within normal limits. Peritoneum: No free air is seen. Stranding changes are seen surrounding the cecum and appendix. No fr ee fluid or focal fluid collection is seen in the abdomen or pelvis. Bowel: Normal caliber. Scattered diverticula in the colon. Scarring is seen surrounding the diverticu la in the pelvis. There is also questionable stranding change surrounding some of the diverticula in the pelvis. The patient appears to have a very short appendix containing an appendicolith. This ap pendicolith was not seen on the prior examinations. Mesentery and Retroperitoneum: No enlarged mesenteric or retroperitoneal lymph nodes. Vessels: Normal. Abdominal Wall: within normal limits. Bones: Degenerative changes in the spine. IMPRESSION: 1. Acute appendicitis 2. Acute diverticulitis
[2020-09-12] MEDS ORDERED: Piperacillin/Tazobactam 4.5 GM VIAL ONE (16:59)
[2020-09-12] MEDS ORDERED: Fentanyl 100 MCG/2 ML VIAL ONE (17:31)
[2020-09-12] MEDS ORDERED: Morphine 4 MG/ML VIAL SLOW IVP PRN (21:13)
[2020-09-12] MEDS ORDERED: Sodium Chloride 0.9% 1,000 ML IV SCH (21:15)
[2020-09-12] MEDS ORDERED: Ondansetron PF 4 MG/2 ML Vial IVP PRN (21:15)
[2020-09-12] MEDS ORDERED: Ondansetron ODT 4 MG TAB SL PRN (21:15)
[2020-09-12] MEDS: Sodium Chloride 0.9% 1,000 ML IV SCH (22:00)
[2020-09-12 22:11] VITALS: BMI 42.4
[2020-09-12] MEDS ORDERED: Promethazine HCl 25 MG/ML VIAL IM PRN (22:42)
[2020-09-12] MEDS ORDERED: Dextrose 50% Abboject 50 ML SYRINGE SLOW IVP PRN (22:42)
[2020-09-12] MEDS ORDERED: hydrALAZINE 20 MG/ML VIAL SLOW IVP PRN (22:42)
[2020-09-12] MEDS ORDERED: Dextrose 5% in Water 1,000 ML IV PRN (22:42)
[2020-09-12] MEDS ORDERED: Morphine 2 MG/ML VIAL SLOW IVP PRN (22:42)
[2020-09-12] MEDS ORDERED: Famotidine/PF 20 mg/2ml Vial SLOW IVP SCH (23:15)
[2020-09-12] MEDS ORDERED: Gabapentin 300 MG CAP PO SCH (23:15)
[2020-09-12] MEDS: Piperacillin/Tazobactam 4.5 GM in Sodium Chloride 0.9% 100 ML IVPB SCH (23:57)
[2020-09-13] MEDS: Acetaminophen 325 MG TAB PO PRN ×2 (00:20→12:56)
[2020-09-13] MEDS: Piperacillin/Tazobactam 3.375 GM in Sodium Chloride 0.9% 100 ML IVPB SCH ×4 (00:21→17:26)
[2020-09-13] MEDS: Morphine 4 MG/ML VIAL SLOW IVP PRN ×3 (00:39→12:52)
[2020-09-13] MEDS: Ondansetron PF 4 MG/2 ML Vial IVP PRN ×2 (01:17→12:51)
[2020-09-13 05:33] LABS: SARS-CoV-2 MS2 Positive; SARS-CoV-2 N Gene Negative; SARS-CoV-2 S Gene Negative; SARS-CoV-2 by NAA Not Detected (NotDetected); SARS-CoV-2 orf1ab Negative
[2020-09-13] MEDS: Piperacillin/Tazobactam 4.5 GM in Sodium Chloride 0.9% 100 ML IVPB SCH (05:52)
[2020-09-13 06:24] LABS: #Lymphocytes 1.1 thou/uL (1.20-3.40); #Monocytes 0.5 thou/uL (0.11-0.59); #Neutrophils 6.3 thou/uL (1.40-6.50); %Basophils 0.3 % (0.0-1.0); %Eosinophils 0.5 % (0.0-10.0); %Lymphocytes 13.7 % (21.0-51.0); %Monocytes 6.4 % (0.0-10.0); %Neutrophils 79.1 % (42.0-75.0); Hemoglobin 12.2 g/dL (12.0-16.0); Mean Corpuscular HGB CONC 32.1 g/dL (32.0-36.0); Mean Corpuscular Hemoglobin 28.3 pg (27.0-31.0); Mean Corpuscular Volume 88.3 fL (78.0-98.0); Mean Platelet Volume 7.1 fL (7.4-10.4); Platelet Count 233 thou/uL (130-400)
[2020-09-13] MEDS: Levothyroxine Sodium 100 MCG TAB PO SCH (06:28)
[2020-09-13] MEDS: Sodium Chloride 0.9% 1,000 ML IV SCH ×3 (06:43→21:17)
[2020-09-13 06:45] LABS: Anion Gap 12 mmol/L (10-20); BUN (Urea Nitrogen) 5 mg/dL (9.8-20.1); Calc. Creatinine Clearance 229 mL/min (70-130); Calcium 8.5 mg/dL (7.8-10.44); Carbon Dioxide 26 mmol/L (22-29); Chloride 103 mmol/L (98-107); Estimated GFR-MDRD Greater than 90; Glucose 131 mg/dL (70-105); Potassium 3.7 mmol/L (3.5-5.1); Sodium 137 mmol/L (136-145)
[2020-09-13] MEDS: HYDROcodone/Acetaminophen 10/325 mg Tablet PO PRN ×3 (09:20→21:16)
[2020-09-13] MEDS: Citalopram 10 MG TAB PO SCH (09:20)
[2020-09-13] MEDS: Lisinopril/Hydrochlorothiazide 20 mg/12.5 mg Tablet PO SCH (09:20)
[2020-09-13] MEDS: Famotidine 20 MG TAB PO SCH ×2 (09:20→21:15)
[2020-09-13] MEDS: Gabapentin 300 MG CAP PO SCH ×2 (09:20→21:15)
[2020-09-13] MEDS: Famotidine/PF 20 mg/2ml Vial SLOW IVP SCH ×2 (09:21→21:17)
--- NOTE | 2020-09-13 15:28 | PRG ---
DATE OF SERVICE: 09/13/2020 SUBJECTIVE: Ms. Chun's abdominal pain is better. She has no nausea. She is hungry. She is complaining of [id number] headache. OBJECTIVE: VITAL SIGNS: She is afebrile. Vital signs are stable. ABDOMEN: Minimally tender in the right abdomen. No guarding or rebound. Left-sided tenderness is better. LABORATORY DATA: White blood cell count this morning is 8 with a normal differential. Creatinine 0.53. ASSESSMENT: Simultaneous cecal diverticulitis versus appendiceal stumpitis and sigmoid diverticulitis. PLAN: Continue IV antibiotics. We will allow for full liquids. Try Evans for headache. Job ID: [id number]
[2020-09-13] MEDS ORDERED: Enoxaparin Sodium 40 MG/0.4 ML SYRINGE SC SCH (21:00)
[2020-09-13] MEDS ORDERED: FLU VACC QS2020-21(6MOS UP)/PF 60 MCG/0.5 ML SYRINGE IM ONE (21:00)
--- NOTE | 2020-09-13 22:03 | HP ---
CHIEF COMPLAINT: Abdominal pain. HISTORY OF PRESENT ILLNESS: This is a 50-year-old female, who presents with a history of pain that is sharp, 8/10 in the lower abdomen, left is worse than right, associated with nausea. No vomiting. No change in stools. No chronic abdominal pain. She has had similar episode before, where she was found to have diverticulitis. At this time, she does have CT evidence of diverticulitis in the sigmoid colon and around the cecum. There is question of appendiceal stumpitis from previous appendectomy. She states her appendectomy was done in [place] a few decades ago. No problems with that since. No significant complications of that procedure. PAST MEDICAL HISTORY: Includes hypertension, hypothyroid, and chronic left hip pain. MEDICATIONS: Taken daily include: 1. Lisinopril. 2. Hydrochlorothiazide. 3. Levothyroxine. 4. Gabapentin. 5. Celexa. SOCIAL HISTORY: No smoking or alcohol or other drugs. ALLERGIES: NO KNOWN DRUG ALLERGIES. REVIEW OF SYSTEMS: Ten-system review of systems is otherwise negative unless described above. PHYSICAL EXAMINATION: VITAL SIGNS: Blood pressure is 109/62, pulse 85, respirations 20, and she is afebrile. HEENT: Sclerae anicteric. Oropharynx is clear. NECK: No lymphadenopathy. CHEST: Clear. HEART: Regular rate. ABDOMEN: Soft. Tender in the lower abdomen, left worse than right. No guarding or rebound. No abdominal or inguinal hernias. EXTREMITIES: No ischemia or edema to extremities. IMAGING: CT scan shows as above. LABORATORY DATA: White cell count is normal. Creatinine normal. ASSESSMENT: Diverticulitis, questionable appendiceal stumpitis. PLAN: Admit her for IV antibiotics. Hopefully, expectation she will improve without surgery, converted to oral antibiotics over the next few days and will be discharged home. If not, she will undergo colon resection. Job ID: [id number]
[2020-09-14] MEDS: Piperacillin/Tazobactam 3.375 GM in Sodium Chloride 0.9% 100 ML IVPB SCH ×3 (00:01→12:30)
[2020-09-14] MEDS: Acetaminophen 325 MG TAB PO PRN (00:01)
[2020-09-14 05:42] LABS: #Eosinphils 0.1 thou/uL (0.0-0.7); #Lymphocytes 1.9 thou/uL (1.20-3.40); #Monocytes 0.5 thou/uL (0.11-0.59); #Neutrophils 4.6 thou/uL (1.40-6.50); %Basophils 0.4 % (0.0-1.0); %Eosinophils 1.5 % (0.0-10.0); %Lymphocytes 27.3 % (21.0-51.0); %Monocytes 6.8 % (0.0-10.0); Hemoglobin 11.4 g/dL (12.0-16.0); Mean Corpuscular HGB CONC 31.6 g/dL (32.0-36.0); Mean Corpuscular Volume 88.5 fL (78.0-98.0); Mean Platelet Volume 7.1 fL (7.4-10.4); Platelet Count 235 thou/uL (130-400); Red Blood Cell (RBC) Count 4.07 mill/uL (4.20-5.40); White Blood Cell (WBC) Count 7.1 thou/uL (4.8-10.8)
[2020-09-14] MEDS: Levothyroxine Sodium 100 MCG TAB PO SCH (05:51)
[2020-09-14] MEDS: HYDROcodone/Acetaminophen 10/325 mg Tablet PO PRN ×2 (05:57→12:35)
[2020-09-14] MEDS: Gabapentin 300 MG CAP PO SCH (09:04)
[2020-09-14] MEDS: Citalopram 10 MG TAB PO SCH (09:06)
[2020-09-14] MEDS: Sodium Chloride 0.9% 1,000 ML IV SCH (09:06)
[2020-09-14] MEDS: Famotidine 20 MG TAB PO SCH (09:06)
[2020-09-14] MEDS: Famotidine/PF 20 mg/2ml Vial SLOW IVP SCH (09:19)
[2020-09-14] MEDS: Lisinopril/Hydrochlorothiazide 20 mg/12.5 mg Tablet PO SCH (09:28)
[2020-09-14 10:55] VITALS: BP 108/72; TEMP 98
--- NOTE | 2020-09-15 02:09 | DIS ---
DATE OF ADMISSION: 09/12/2020 DATE OF DISCHARGE: 09/14/2020 ADMIT DIAGNOSIS: Diverticulitis. DISCHARGE DIAGNOSIS: Diverticulitis. PROCEDURES: None. STAFF: Dr. Connolly. CONDITION ON DISCHARGE: Improved. HOSPITAL COURSE: The patient was admitted with abdominal pain with evidence of mild diverticulitis as well as appendiceal stumpitis. She has had a previous open appendectomy many years ago. Her symptoms improved on IV antibiotics and on the day of discharge, she is discharged home. She is tolerating a liquid diet. She is afebrile. Vital signs are stable. She is discharged home. She will follow up with me in the office in 2 weeks. Prescriptions for Cipro, Flagyl, hydrocodone, and Zofran were sent to [facility]. She will call my office with questions. Job ID: [id number]
== END 2020-09-14 14:11 | disposition home or self-care (01) ==
LOC: ERS 14:23 → SURG B 17:49
PROVIDERS: ADMIT Surgery; ATTEND Surgery
DX: K57.32 Diverticulitis of large intestine without perforation or abscess without bleeding (principal); K38.1 Appendicular concretions; I10 Essential (primary) hypertension; E03.9 Hypothyroidism, unspecified; G89.29 Other chronic pain; M25.552 Pain in left hip; Z79.899 Other long term (current) drug therapy; Z20.828 Contact with and (suspected) exposure to other viral communicable diseases
CPT/HCPCS: 36415; 51701; 71045; 74177; 80048; 80053; 81003; 81015; 83605; 83690; 84484; 85025; 87040; 87635; 93005; 96365; 96366; 96375; 96376; G0378; J1650; J2270; J2405; J2543; J3010; J3490; Q9967; S0028; U0003

== ENCOUNTER 2021-05-06 18:10 | Inpatient (IN) | payer SELFPAY ==
[2021-05-06 18:38] LABS: #Lymphocytes 1.7 thou/uL (1.20-3.40); #Monocytes 0.6 thou/uL (0.11-0.59); #Neutrophils 7.7 thou/uL (1.40-6.50); %Basophils 0.2 % (0.0-1.0); %Eosinophils 0.4 % (0.0-10.0); %Lymphocytes 16.9 % (21.0-51.0); %Monocytes 6.2 % (0.0-10.0); %Neutrophils 76.2 % (42.0-75.0); Mean Corpuscular HGB CONC 34.1 g/dL (32.0-36.0); Mean Corpuscular Hemoglobin 29.5 pg (27.0-31.0); Mean Corpuscular Volume 86.4 fL (78.0-98.0); Mean Platelet Volume 7.6 fL (7.4-10.4); Platelet Count 255 thou/uL (130-400); RBC Distribution Width 12.8 % (11.5-14.5); Red Blood Cell (RBC) Count 4.75 mill/uL (4.20-5.40); White Blood Cell (WBC) Count 10.1 thou/uL (4.8-10.8)
[2021-05-06 18:52] LABS: Prothrombin Time 12.8 sec (12.0-14.7)
[2021-05-06 18:53] LABS: PTT 34.2 sec (22.9-36.1)
[2021-05-06] MEDS ORDERED: cefTRIAXone\\ROCEPHIN 1 GM VIAL ONE (18:54)
[2021-05-06 18:59] LABS: ALT (SGPT) 23 U/L (8-55); AST (SGOT) 23 U/L (5-34); Albumin 4.1 g/dL (3.5-5.0); Alkaline Phosphatase 104 U/L (40-110); Anion Gap 17 mmol/L (10-20); BUN (Urea Nitrogen) 8 mg/dL (9.8-20.1); Bilirubin, Total 0.3 mg/dL (0.2-1.2); Calc. Creatinine Clearance 0 mL/min (70-130); Calcium 9.6 mg/dL (7.8-10.44); Carbon Dioxide 23 mmol/L (22-29); Chloride 102 mmol/L (98-107); Globulin 4.4 g/dL (2.4-3.5); Glucose 148 mg/dL (70-105); Potassium 4.2 mmol/L (3.5-5.1); Protein, Total 8.5 g/dL (6.0-8.3); Sodium 138 mmol/L (136-145)
[2021-05-06 19:22] LABS: Bilirubin Negative (Negative); Blood, Urine Negative (Negative); Clarity Clear (Clear); Glucose, Urine (Dipstick) Normal (Negative); Ketone, Urine Negative (Negative); Leukocyte Negative Leu/uL (Negative); Nitrite Negative (Negative); Protein, Urine (Dipstick) Negative (Neg-Trace); Specific Gravity, Urine 1.015 (1.002-1.036); Urobilinogen Normal mg/dL (Less than 2)
[2021-05-06] MEDS ORDERED: Morphine 4 MG/ML VIAL ONE (19:46)
[2021-05-06] MEDS ORDERED: Ondansetron PF 4 MG/2 ML Vial ONE (19:47)
[2021-05-06] MEDS ORDERED: Ciprofloxacin 500 MG TAB ONE (19:47)
[2021-05-06] MEDS ORDERED: Acetaminophen 500 MG TAB ONE (19:47)
[2021-05-06] MEDS ORDERED: metroNIDAZOLE 500 MG/100 ML BAG ONE (19:47)
[2021-05-06] MEDS ORDERED: Ondansetron PF 4 MG/2 ML Vial IVP PRN (21:34)
[2021-05-06] MEDS ORDERED: Acetaminophen 325 MG TAB PO PRN (21:34)
[2021-05-06] MEDS ORDERED: HYDROcodone/Acetaminophen 5/325 mg Tablet PO PRN (21:35)
[2021-05-06] MEDS ORDERED: HumaLOG 300 UNITS/3 ML VIAL SC PRN ×2 (22:18)
[2021-05-06] MEDS ORDERED: Dextrose 5% in Water 1,000 ML IV PRN (22:18)
[2021-05-06] MEDS ORDERED: Dextrose 50% Abboject 50 ML SYRINGE SLOW IVP PRN (22:18)
[2021-05-07] MEDS ORDERED: Morphine 4 MG/ML VIAL ONE ×2 (00:08→10:00)
[2021-05-07 01:51] LABS: Troponin I Less than 0.010 ng/mL (< 0.028)
[2021-05-07] MEDS ORDERED: HYDROcodone/Acetaminophen 5/325 mg Tablet ONE (03:48)
[2021-05-07] MEDS ORDERED: Morphine 2 MG/ML VIAL ONE (03:48)
[2021-05-07] MEDS: Morphine 2 MG/ML VIAL SLOW IVP PRN ×2 (03:55→10:14)
[2021-05-07] MEDS: Sodium Chloride 0.9% 1,000 ML IV SCH ×2 (03:57→17:25)
[2021-05-07 04:11] LABS: #Eosinphils 0.1 thou/uL (0.0-0.7); #Monocytes 0.7 thou/uL (0.11-0.59); %Basophils 0.1 % (0.0-1.0); %Eosinophils 0.7 % (0.0-10.0); %Lymphocytes 26.2 % (21.0-51.0); %Monocytes 9.3 % (0.0-10.0); %Neutrophils 63.7 % (42.0-75.0); Mean Corpuscular HGB CONC 33.7 g/dL (32.0-36.0); Mean Corpuscular Hemoglobin 29.5 pg (27.0-31.0); Mean Corpuscular Volume 87.4 fL (78.0-98.0); Mean Platelet Volume 7.5 fL (7.4-10.4); Platelet Count 229 thou/uL (130-400); White Blood Cell (WBC) Count 7.8 thou/uL (4.8-10.8)
[2021-05-07 04:33] LABS: Anion Gap 14 mmol/L (10-20); BUN (Urea Nitrogen) 8 mg/dL (9.8-20.1); Calc. Creatinine Clearance 0 mL/min (70-130); Carbon Dioxide 23 mmol/L (22-29); Cardiac Risk 4.5 (Less than 4.5); Chloride 103 mmol/L (98-107); Cholesterol 145 mg/dl (< 200 Desired); Glucose 124 mg/dL (70-105); HDL Cholesterol 32 mg/dL (>60 Neg Risk); LDL Cholesterol, Calculated 97 mg/dL; Potassium 4.1 mmol/L (3.5-5.1); Sodium 136 mmol/L (136-145); Triglycerides 78 mg/dL (Less than 150)
[2021-05-07 04:36] LABS: Troponin I Less than 0.010 ng/mL (< 0.028)
[2021-05-07] MEDS ORDERED: Enoxaparin Sodium 40 MG/0.4 ML SYRINGE SC SCH (09:00)
[2021-05-07] MEDS ORDERED: Aspirin Chewable 81 MG TAB PO SCH (09:00)
[2021-05-07] MEDS ORDERED: Aspirin Chewable 81 MG TAB ONE (10:00)
[2021-05-07] MEDS ORDERED: Enoxaparin Sodium 40 MG/0.4 ML SYRINGE ONE (10:01)
== END 2021-05-07 17:25 | disposition home or self-care (01) | DRG 392 ==
LOC: ERS 18:10 → ERHOLD 21:13
PROVIDERS: ADMIT Student in an Organized Health Care Education/Training Program; ATTEND Student in an Organized Health Care Education/Training Program
DX: K57.32 Diverticulitis of large intestine without perforation or abscess without bleeding (principal); I10 Essential (primary) hypertension; E03.9 Hypothyroidism, unspecified; E11.9 Type 2 diabetes mellitus without complications; E78.5 Hyperlipidemia, unspecified; R07.9 Chest pain, unspecified; Z86.73 Personal history of transient ischemic attack (TIA), and cerebral infarction without residual deficits; Z90.49 Acquired absence of other specified parts of digestive tract; Z90.710 Acquired absence of both cervix and uterus
CPT/HCPCS: 36415; 36416; 74177; 80048; 80053; 80061; 81003; 83605; 84484; 85025; 85610; 85730; 87040; 87086; 93005; 93306; 94760; 96365; 96375; 96376; J0696; J1650; J2270; J2405; Q9967

== ENCOUNTER 2021-10-05 21:14 | Inpatient (IN) | payer SELFPAY ==
[2021-10-05 21:41] LABS: #Eosinphils 0.1 thou/uL (0.0-0.7); #Lymphocytes 2.4 thou/uL (1.20-3.40); #Monocytes 0.8 thou/uL (0.11-0.59); #Neutrophils 5.7 thou/uL (1.40-6.50); %Basophils 0.4 % (0.0-1.0); %Eosinophils 0.6 % (0.0-10.0); %Lymphocytes 26.4 % (21.0-51.0); %Monocytes 9.2 % (0.0-10.0); %Neutrophils 63.3 % (42.0-75.0); Hemoglobin 13.4 g/dL (12.0-16.0); Mean Corpuscular HGB CONC 32.2 g/dL (32.0-36.0); Mean Corpuscular Hemoglobin 27.5 pg (27.0-31.0); Mean Corpuscular Volume 85.6 fL (78.0-98.0); Mean Platelet Volume 7.5 fL (7.4-10.4); Platelet Count 244 thou/uL (130-400); RBC Distribution Width 13.7 % (11.5-14.5); Red Blood Cell (RBC) Count 4.85 mill/uL (4.20-5.40); White Blood Cell (WBC) Count 8.9 thou/uL (4.8-10.8)
[2021-10-05 22:45] LABS: BHCG - Serum Negative (NEGATIVE); Pregs Control Background? CLEAR/WHITE (CLR/WHITE); Pregs Control Bar Appear? YES (CONTROL BAR)
[2021-10-05 22:54] LABS: Bacteria/HPF None Seen HPF (None Seen); Bilirubin Negative (Negative); Blood, Urine Trace (Negative); Clarity Clear (Clear); Glucose, Urine (Dipstick) Normal (Negative); Ketone, Urine 60 mg/dL (Negative); Leukocyte 25 Leu/uL (Negative); Nitrite Negative (Negative); Protein, Urine (Dipstick) 10 mg/dL (Neg-Trace); RBC/HPF 0-3 HPF (0-3); Specific Gravity, Urine 1.048 (1.002-1.036); Squamous Epithelial 0-3 HPF (0-3); Urobilinogen Normal mg/dL (Less than 2); WBC/HPF 0-3 HPF (0-3); pH, Urine 6.5 (5.0-9.0)
[2021-10-06] MEDS ORDERED: Ondansetron PF 4 MG/2 ML Vial ONE (00:07)
[2021-10-06] MEDS ORDERED: Morphine 4 MG/ML VIAL ONE (00:07)
[2021-10-06] MEDS ORDERED: Piperacillin/Tazobactam 3.375 GM VIAL ONE (00:07)
[2021-10-06 03:00] VITALS: BMI 42.8
[2021-10-06] MEDS ORDERED: Dextrose 50% Abboject 50 ML SYRINGE SLOW IVP PRN (03:10)
[2021-10-06] MEDS ORDERED: Dextrose 5% in Water 1,000 ML IV PRN (03:10)
[2021-10-06] MEDS ORDERED: Insulin Regular 300 UNITS/3 ML VIAL SC PRN (03:10)
[2021-10-06] MEDS ORDERED: HumaLOG 300 UNITS/3 ML VIAL SC PRN (03:10)
[2021-10-06] MEDS ORDERED: Morphine 4 MG/ML VIAL SLOW IVP SCH (03:15)
[2021-10-06] MEDS ORDERED: Ondansetron PF 4 MG/2 ML Vial IVP PRN (03:16)
[2021-10-06] MEDS ORDERED: Senokot S 8.6-50 MG TAB PO PRN (03:16)
[2021-10-06] MEDS ORDERED: Ondansetron ODT 4 MG TAB PO PRN (03:16)
[2021-10-06] MEDS ORDERED: Acetaminophen 650 MG Suppository PR PRN (03:16)
[2021-10-06] MEDS: Sodium Chloride 0.9% 1,000 ML IV SCH ×3 (03:27→23:13)
[2021-10-06] MEDS: Piperacillin/Tazobactam 3.375 GM in Sodium Chloride 0.9% 100 ML IVPB SCH ×3 (03:32→20:33)
[2021-10-06 05:23] LABS: #Eosinphils 0.1 thou/uL (0.0-0.7); #Lymphocytes 2.1 thou/uL (1.20-3.40); #Monocytes 0.7 thou/uL (0.11-0.59); #Neutrophils 4.7 thou/uL (1.40-6.50); %Basophils 0.1 % (0.0-1.0); %Lymphocytes 27.5 % (21.0-51.0); %Monocytes 9.7 % (0.0-10.0); %Neutrophils 61.6 % (42.0-75.0); Hemoglobin 12.4 g/dL (12.0-16.0); Mean Corpuscular HGB CONC 31.8 g/dL (32.0-36.0); Mean Corpuscular Hemoglobin 27.8 pg (27.0-31.0); Mean Corpuscular Volume 87.4 fL (78.0-98.0); Mean Platelet Volume 7.5 fL (7.4-10.4); Platelet Count 225 thou/uL (130-400); RBC Distribution Width 13.8 % (11.5-14.5); Red Blood Cell (RBC) Count 4.46 mill/uL (4.20-5.40); White Blood Cell (WBC) Count 7.6 thou/uL (4.8-10.8)
[2021-10-06 05:39] LABS: SARS-CoV-2 NAA Rapid Test Not Detected (NotDetected)
[2021-10-06 05:50] LABS: ALT (SGPT) 16 U/L (8-55); AST (SGOT) 15 U/L (5-34); Albumin 3.5 g/dL (3.5-5.0); Alkaline Phosphatase 80 U/L (40-110); Anion Gap 12 mmol/L (10-20); BUN (Urea Nitrogen) 11 mg/dL (9.8-20.1); Bilirubin, Total 0.4 mg/dL (0.2-1.2); Calc. Creatinine Clearance 199 mL/min (70-130); Calcium 8.8 mg/dL (7.8-10.44); Carbon Dioxide 25 mmol/L (22-29); Chloride 103 mmol/L (98-107); Globulin 3.8 g/dL (2.4-3.5); Glucose 138 mg/dL (70-105); Potassium 3.8 mmol/L (3.5-5.1); Protein, Total 7.3 g/dL (6.0-8.3); Sodium 136 mmol/L (136-145)
[2021-10-06] MEDS ORDERED: Piperacillin/Tazobactam 4.5 GM in Sodium Chloride 0.9% 100 ML IVPB SCH (06:00)
[2021-10-06] MEDS: Levothyroxine Sodium 100 MCG TAB PO SCH (06:09)
[2021-10-06] MEDS: Citalopram 10 MG TAB PO SCH (08:11)
[2021-10-06] MEDS: Enoxaparin Sodium 40 MG/0.4 ML SYRINGE SC SCH (08:11)
[2021-10-06] MEDS: Gabapentin 300 MG CAP PO SCH ×2 (08:11→20:33)
[2021-10-06] MEDS ORDERED: Ibuprofen 200 MG TAB PO PRN (08:26)
[2021-10-06] MEDS: Ketorolac Tromethamine 30 MG/ML VIAL IVP PRN ×3 (10:51→23:09)
[2021-10-06] MEDS: Acetaminophen 325 MG TAB PO PRN ×2 (15:16→20:32)
[2021-10-07] MEDS: Ketorolac Tromethamine 30 MG/ML VIAL IVP PRN (04:51)
[2021-10-07] MEDS: Levothyroxine Sodium 100 MCG TAB PO SCH (04:52)
[2021-10-07] MEDS: Piperacillin/Tazobactam 3.375 GM in Sodium Chloride 0.9% 100 ML IVPB SCH (04:52)
[2021-10-07] MEDS: Acetaminophen 325 MG TAB PO PRN ×2 (04:58→21:00)
[2021-10-07 06:20] LABS: Anion Gap 14 mmol/L (10-20); BUN (Urea Nitrogen) 10 mg/dL (9.8-20.1); Calc. Creatinine Clearance 216 mL/min (70-130); Calcium 8.7 mg/dL (7.8-10.44); Carbon Dioxide 20 mmol/L (22-29); Chloride 106 mmol/L (98-107); Glucose 118 mg/dL (70-105); Potassium 4.3 mmol/L (3.5-5.1); Sodium 136 mmol/L (136-145)
[2021-10-07 06:32] LABS: Hemoglobin 10.6 g/dL (12.0-16.0); Mean Corpuscular HGB CONC 35.8 g/dL (32.0-36.0); Mean Corpuscular Volume 92.2 fL (78.0-98.0); Mean Platelet Volume 9.1 fL (7.4-10.4); Platelet Count 142 thou/uL (130-400); RBC Distribution Width 13.9 % (11.5-14.5)
[2021-10-07 06:35] LABS: Band 1 % (5-11); Eosinophils 4 % (0-10); Lymphocytes 32 % (21-51); MDiff Complete? YES; Monocytes 11 % (0-10); Neutrophil 50 % (42-75); Platelet Morphology Comment Appears Adequate; RBC Morphology Normal
[2021-10-07] MEDS ORDERED: Saccharomyces boulardii 250 MG CAP PO SCH (09:00)
[2021-10-07] MEDS: Citalopram 10 MG TAB PO SCH (09:24)
[2021-10-07] MEDS: Gabapentin 300 MG CAP PO SCH ×2 (09:24→20:59)
[2021-10-07] MEDS: Enoxaparin Sodium 40 MG/0.4 ML SYRINGE SC SCH (09:24)
[2021-10-07] MEDS ORDERED: Amoxicillin/Potassium Clav 875 MG TAB PO SCH ×2 (10:15→21:00)
[2021-10-07] MEDS: Sodium Chloride 0.9% 1,000 ML IV SCH ×3 (10:26→20:15)
[2021-10-07] MEDS ORDERED: Sodium Chloride 0.9% 1,000 ML IV SCH (15:15)
[2021-10-07] MEDS ORDERED: Acetaminophen 325 MG TAB PO PRN (15:15)
[2021-10-07] MEDS ORDERED: Calcium Carbonate 500 MG ChewTAB PO PRN (15:15)
[2021-10-07] MEDS ORDERED: traMADol HCl 50 MG TAB PO PRN (15:18)
[2021-10-07] MEDS ORDERED: Piperacillin/Tazobactam 3.375 GM in Sodium Chloride 0.9% 100 ML IVPB SCH (17:00)
[2021-10-07 17:01] LABS: #Eosinphils 0.1 thou/uL (0.0-0.7); #Lymphocytes 1.3 thou/uL (1.20-3.40); #Monocytes 0.4 thou/uL (0.11-0.59); #Neutrophils 2.9 thou/uL (1.40-6.50); %Basophils 0.3 % (0.0-1.0); %Eosinophils 2.2 % (0.0-10.0); %Lymphocytes 27.1 % (21.0-51.0); %Monocytes 8.8 % (0.0-10.0); %Neutrophils 61.6 % (42.0-75.0); Hemoglobin 11.9 g/dL (12.0-16.0); Mean Corpuscular HGB CONC 31.6 g/dL (32.0-36.0); Mean Corpuscular Hemoglobin 27.6 pg (27.0-31.0); Mean Corpuscular Volume 87.4 fL (78.0-98.0); Platelet Count 238 thou/uL (130-400); RBC Distribution Width 13.5 % (11.5-14.5); White Blood Cell (WBC) Count 4.8 thou/uL (4.8-10.8)
[2021-10-07] MEDS ORDERED: Dextrose 50% Abboject 50 ML SYRINGE SLOW IVP PRN (20:11)
[2021-10-07] MEDS ORDERED: Dextrose 5% in Water 1,000 ML IV PRN (20:11)
[2021-10-07] MEDS ORDERED: Senokot S 8.6-50 MG TAB PO PRN (20:13)
[2021-10-07] MEDS: Amoxicillin/Potassium Clav 875 MG TAB PO SCH (20:59)
[2021-10-07] MEDS ORDERED: Gabapentin 300 MG CAP PO SCH (21:00)
[2021-10-07] MEDS: Famotidine 20 MG TAB PO SCH (21:00)
[2021-10-07] MEDS ORDERED: Preparation H Ointment 28 GM TUBE TOP PRN (21:41)
[2021-10-08] MEDS: Acetaminophen 325 MG TAB PO PRN ×2 (03:50→08:21)
[2021-10-08] MEDS ORDERED: Levothyroxine Sodium 100 MCG TAB PO SCH ×2 (06:00)
[2021-10-08 06:13] LABS: #Eosinphils 0.1 thou/uL (0.0-0.7); #Lymphocytes 1.4 thou/uL (1.20-3.40); #Monocytes 0.4 thou/uL (0.11-0.59); #Neutrophils 2.3 thou/uL (1.40-6.50); %Basophils 0.4 % (0.0-1.0); %Eosinophils 2.2 % (0.0-10.0); %Lymphocytes 32.9 % (21.0-51.0); %Monocytes 9.1 % (0.0-10.0); %Neutrophils 55.5 % (42.0-75.0); Hemoglobin 11.8 g/dL (12.0-16.0); Mean Corpuscular HGB CONC 32.5 g/dL (32.0-36.0); Mean Corpuscular Hemoglobin 28.6 pg (27.0-31.0); Mean Corpuscular Volume 87.9 fL (78.0-98.0); Mean Platelet Volume 7.1 fL (7.4-10.4); Platelet Count 231 thou/uL (130-400); RBC Distribution Width 13.7 % (11.5-14.5); Red Blood Cell (RBC) Count 4.14 mill/uL (4.20-5.40); White Blood Cell (WBC) Count 4.2 thou/uL (4.8-10.8)
[2021-10-08 06:33] LABS: ALT (SGPT) 16 U/L (8-55); AST (SGOT) 16 U/L (5-34); Albumin 3.3 g/dL (3.5-5.0); Alkaline Phosphatase 72 U/L (40-110); Anion Gap 10 mmol/L (10-20); BUN (Urea Nitrogen) 10 mg/dL (9.8-20.1); Bilirubin, Total Less than 0.2 mg/dL (0.2-1.2); Calc. Creatinine Clearance 216 mL/min (70-130); Calcium 8.7 mg/dL (7.8-10.44); Carbon Dioxide 26 mmol/L (22-29); Chloride 105 mmol/L (98-107); Globulin 3.7 g/dL (2.4-3.5); Glucose 138 mg/dL (70-105); Sodium 137 mmol/L (136-145)
[2021-10-08 07:46] VITALS: BP 166/85; TEMP 98.4
[2021-10-08] MEDS: Amoxicillin/Potassium Clav 875 MG TAB PO SCH (08:15)
[2021-10-08] MEDS: Famotidine 20 MG TAB PO SCH (08:15)
[2021-10-08] MEDS: Gabapentin 300 MG CAP PO SCH (08:16)
[2021-10-08] MEDS: Sodium Chloride 0.9% 1,000 ML IV SCH (08:16)
[2021-10-08] MEDS ORDERED: Saccharomyces boulardii 250 MG CAP PO SCH ×2 (09:00)
[2021-10-08] MEDS ORDERED: Citalopram 10 MG TAB PO SCH ×2 (09:00)
[2021-10-08] MEDS ORDERED: Enoxaparin Sodium 40 MG/0.4 ML SYRINGE SC SCH ×2 (09:00→21:00)
== END 2021-10-08 13:12 | disposition home or self-care (01) | DRG 392 ==
LOC: ERS 21:14 → T4-A 23:50 → UNDODISIN 10-07 14:46
PROVIDERS: ADMIT Student in an Organized Health Care Education/Training Program; ATTEND Internal Medicine
DX: K57.32 Diverticulitis of large intestine without perforation or abscess without bleeding (principal); R65.10 Systemic inflammatory response syndrome (SIRS) of non-infectious origin without acute organ dysfunction; Z68.41 Body mass index [BMI] 40.0-44.9, adult; Z20.822 Contact with and (suspected) exposure to COVID-19; E66.01 Morbid (severe) obesity due to excess calories; E03.9 Hypothyroidism, unspecified; E78.5 Hyperlipidemia, unspecified; K59.09 Other constipation; F41.9 Anxiety disorder, unspecified; I10 Essential (primary) hypertension; E11.69 Type 2 diabetes mellitus with other specified complication; Z90.49 Acquired absence of other specified parts of digestive tract; Z90.710 Acquired absence of both cervix and uterus; Z79.890 Hormone replacement therapy; Z86.73 Personal history of transient ischemic attack (TIA), and cerebral infarction without residual deficits; Z79.84 Long term (current) use of oral hypoglycemic drugs; Z79.899 Other long term (current) drug therapy
CPT/HCPCS: 0240U; 36415; 36416; 71045; 74177; 80048; 80053; 81003; 81015; 83690; 83880; 84443; 84484; 84703; 85025; 93005; 96365; 96375; J1650; J1885; J2270; J2405; J2543; J3490; J7050; Q0162

== ENCOUNTER 2021-11-09 22:35 | Emergency (ER) | payer SELFPAY ==
[2021-11-09] MEDS ORDERED: Aspirin Chewable 81 MG TAB ONE (23:43)
[2021-11-10 00:09] LABS: #Lymphocytes 0.5 thou/uL (1.20-3.40); #Monocytes 0.4 thou/uL (0.11-0.59); #Neutrophils 2.8 thou/uL (1.40-6.50); %Basophils 0.1 % (0.0-1.0); %Eosinophils 1.2 % (0.0-10.0); %Lymphocytes 12.8 % (21.0-51.0); %Monocytes 9.7 % (0.0-10.0); %Neutrophils 76.2 % (42.0-75.0); Hemoglobin 12.9 g/dL (12.0-16.0); Mean Corpuscular HGB CONC 34.2 g/dL (32.0-36.0); Mean Corpuscular Hemoglobin 29.1 pg (27.0-31.0); Mean Platelet Volume 7.7 fL (7.4-10.4); Platelet Count 160 thou/uL (130-400); RBC Distribution Width 13.9 % (11.5-14.5); Red Blood Cell (RBC) Count 4.42 mill/uL (4.20-5.40); White Blood Cell (WBC) Count 3.7 thou/uL (4.8-10.8)
[2021-11-10] MEDS ORDERED: Acetaminophen 500 MG TAB ONE (00:19)
[2021-11-10 00:29] LABS: Bacteria/HPF None Seen HPF (None Seen); Bilirubin Negative (Negative); Blood, Urine Trace (Negative); Clarity Clear (Clear); Glucose, Urine (Dipstick) Normal (Negative); Ketone, Urine Negative (Negative); Leukocyte Negative Leu/uL (Negative); Nitrite Negative (Negative); Protein, Urine (Dipstick) Negative (Neg-Trace); RBC/HPF 0-3 HPF (0-3); Specific Gravity, Urine 1.012 (1.002-1.036); Squamous Epithelial 0-3 HPF (0-3); Urobilinogen Normal mg/dL (Less than 2); WBC/HPF 0-3 HPF (0-3); pH, Urine 6.5 (5.0-9.0)
[2021-11-10 00:36] LABS: SARS-CoV-2 NAA Rapid Test DETECTED (NotDetected)
== END 2021-11-10 02:15 | disposition home or self-care (01) ==
LOC: ERS 22:35
DX: U07.1 COVID-19 (principal); I10 Essential (primary) hypertension; E03.9 Hypothyroidism, unspecified; E78.5 Hyperlipidemia, unspecified; E11.9 Type 2 diabetes mellitus without complications; Z86.73 Personal history of transient ischemic attack (TIA), and cerebral infarction without residual deficits
CPT/HCPCS: 36415; 71045; 81003; 81015; 83690; 84443; 84484; 85025; 85379; 87804; 93005; U0002

== ENCOUNTER 2022-05-13 11:24 | Emergency (ER) | payer SELFPAY ==
[2022-05-13] MEDS ORDERED: Ondansetron PF 4 MG/2 ML Vial ONE (12:10)
[2022-05-13] MEDS ORDERED: Morphine 4 MG/ML VIAL ONE (12:10)
[2022-05-13] MEDS ORDERED: Acetaminophen 500 MG TAB ONE (12:10)
[2022-05-13 12:17] LABS: #Lymphocytes 0.4 thou/uL (1.20-3.40); #Monocytes 0.1 thou/uL (0.11-0.59); #Neutrophils 3.5 thou/uL (1.40-6.50); %Basophils 0.2 % (0.0-1.0); %Eosinophils 0.6 % (0.0-10.0); %Lymphocytes 9.1 % (21.0-51.0); %Monocytes 1.1 % (0.0-10.0); Hemoglobin 14.1 g/dL (12.0-16.0); Mean Corpuscular HGB CONC 32.4 g/dL (32.0-36.0); Mean Corpuscular Hemoglobin 28.1 pg (27.0-31.0); Mean Corpuscular Volume 86.7 fL (78.0-98.0); Mean Platelet Volume 8.2 fL (7.4-10.4); Platelet Count 166 thou/uL (130-400); Red Blood Cell (RBC) Count 5.01 mill/uL (4.20-5.40)
[2022-05-13 12:50] LABS: ALT (SGPT) 52 U/L (8-55); AST (SGOT) 68 U/L (5-34); Albumin 3.6 g/dL (3.5-5.0); Alkaline Phosphatase 109 U/L (40-110); Anion Gap 21 mmol/L (10-20); BUN (Urea Nitrogen) 11 mg/dL (9.8-20.1); Bilirubin, Total 0.4 mg/dL (0.2-1.2); Calc. Creatinine Clearance 0 mL/min (70-130); Calcium 8.7 mg/dL (7.8-10.44); Carbon Dioxide 17 mmol/L (22-29); Chloride 104 mmol/L (98-107); Estimated GFR 104; Globulin 4.1 g/dL (2.4-3.5); Glucose 152 mg/dL (70-105); Lipase 16 U/L (8-78); Magnesium 1.6 mg/dL (1.6-2.6); Potassium 4.3 mmol/L (3.5-5.1); Protein, Total 7.7 g/dL (6.0-8.3); Sodium 138 mmol/L (136-145)
[2022-05-13 13:21] LABS: SARS-CoV-2 NAA Rapid Test Not Detected (NotDetected)
== END 2022-05-13 14:22 | disposition home or self-care (01) ==
LOC: ERS 11:24
DX: R07.2 Precordial pain (principal); E03.9 Hypothyroidism, unspecified; I10 Essential (primary) hypertension; E78.5 Hyperlipidemia, unspecified; Z86.73 Personal history of transient ischemic attack (TIA), and cerebral infarction without residual deficits; Z79.899 Other long term (current) drug therapy; Z20.822 Contact with and (suspected) exposure to COVID-19
CPT/HCPCS: 36415; 71045; 80053; 83690; 83735; 83880; 84484; 85025; 93005; 96374; 96375; J2270; J2405

== ENCOUNTER 2022-06-05 00:36 | Observation (INO) | payer SELFPAY ==
[2022-06-05] MEDS ORDERED: Nitroglycerin 2% Ointment 1 INCH/1 GM Packet ONE (01:15)
[2022-06-05] MEDS ORDERED: Aspirin Chewable 81 MG TAB ONE (01:15)
[2022-06-05 01:19] LABS: #Lymphocytes 0.7 thou/uL (1.20-3.40); #Neutrophils 1.9 thou/uL (1.40-6.50); %Basophils 0.1 % (0.0-1.0); %Eosinophils 0.9 % (0.0-10.0); %Lymphocytes 25.9 % (21.0-51.0); %Monocytes 0.1 % (0.0-10.0); %Neutrophils 73.1 % (42.0-75.0); Hemoglobin 13.2 g/dL (12.0-16.0); Mean Corpuscular HGB CONC 33.5 g/dL (32.0-36.0); Mean Corpuscular Hemoglobin 28.6 pg (27.0-31.0); Mean Corpuscular Volume 85.3 fL (78.0-98.0); Mean Platelet Volume 8.2 fL (7.4-10.4); Platelet Count 160 thou/uL (130-400); Red Blood Cell (RBC) Count 4.62 mill/uL (4.20-5.40); White Blood Cell (WBC) Count 2.6 thou/uL (4.8-10.8)
[2022-06-05] MEDS ORDERED: Mag-Al 1200 mg/1200 mg/30 ML UDCUP ONE (01:49)
[2022-06-05] MEDS ORDERED: Lidocaine Viscous Sol 2% 15 ml UD Cup ONE (01:49)
[2022-06-05] MEDS ORDERED: Acetaminophen 500 MG TAB ONE (02:08)
[2022-06-05 02:37] LABS: ALT (SGPT) 44 U/L (8-55); AST (SGOT) 41 U/L (5-34); Albumin 3.8 g/dL (3.5-5.0); Alkaline Phosphatase 113 U/L (40-110); Anion Gap 16 mmol/L (10-20); BUN (Urea Nitrogen) 17 mg/dL (9.8-20.1); Bilirubin, Total 0.2 mg/dL (0.2-1.2); Calc. Creatinine Clearance 0 mL/min (70-130); Carbon Dioxide 24 mmol/L (22-29); Chloride 105 mmol/L (98-107); Estimated GFR 102; Globulin 3.8 g/dL (2.4-3.5); Glucose 172 mg/dL (70-105); Potassium 3.8 mmol/L (3.5-5.1); Protein, Total 7.6 g/dL (6.0-8.3); Sodium 141 mmol/L (136-145)
[2022-06-05] MEDS ORDERED: Ondansetron PF 4 MG/2 ML Vial ONE (03:05)
[2022-06-05] MEDS ORDERED: Morphine 4 MG/ML VIAL ONE (03:05)
[2022-06-05 03:45] LABS: Bilirubin Negative (Negative); Blood, Urine Negative (Negative); Clarity Clear (Clear); Glucose, Urine (Dipstick) Normal (Negative); Ketone, Urine Negative (Negative); Leukocyte Negative Leu/uL (Negative); Nitrite Negative (Negative); Protein, Urine (Dipstick) Negative (Neg-Trace); Specific Gravity, Urine 1.028 (1.002-1.036); Urobilinogen Normal mg/dL (Less than 2)
[2022-06-05] MEDS ORDERED: Ketorolac Tromethamine 30 MG/ML VIAL ONE (06:55)
[2022-06-05 07:07] LABS: Troponin I Less than 0.010 ng/mL (< 0.028)
[2022-06-05] MEDS ORDERED: Acetaminophen 650 MG/20.3 ML UDCUP PO PRN (07:53)
[2022-06-05] MEDS ORDERED: Ondansetron PF 4 MG/2 ML Vial IVP PRN (07:53)
[2022-06-05] MEDS ORDERED: HumaLOG 300 UNITS/3 ML VIAL SC PRN (08:03)
[2022-06-05] MEDS ORDERED: Dextrose 5% in Water 1,000 ML IV PRN (08:03)
[2022-06-05] MEDS ORDERED: Dextrose 50% Abboject 50 ML SYRINGE SLOW IVP PRN (08:03)
[2022-06-05 08:25] LABS: SARS-CoV-2 NAA Rapid Test Not Detected (NotDetected)
[2022-06-05 08:37] LABS: Cardiac Risk 5.6 (Less than 4.5)
[2022-06-05] MEDS ORDERED: Aspirin 81 mg Enteric Coated Tablet PO SCH (09:00)
[2022-06-05 09:05] LABS: Troponin I Less than 0.010 ng/mL (< 0.028)
[2022-06-05] MEDS ORDERED: traMADol HCl 50 MG TAB PO SCH (15:00)
[2022-06-05] MEDS ORDERED: Iopamidol-370 76% 500 ML 1 ML ONE (15:47)
[2022-06-05] MEDS ORDERED: Atorvastatin Calcium 40 MG TAB PO SCH (21:00)
[2022-06-05] MEDS ORDERED: Gabapentin 300 MG CAP PO SCH (21:00)
[2022-06-06] MEDS ORDERED: Levothyroxine Sodium 100 MCG TAB PO SCH (06:00)
[2022-06-06] MEDS ORDERED: Lisinopril/Hydrochlorothiazide 20 mg/12.5 mg Tablet PO SCH (09:00)
[2022-06-06] MEDS ORDERED: Citalopram 10 MG TAB PO SCH (09:00)
== END 2022-06-05 13:44 | disposition home or self-care (01) ==
LOC: ERS 00:36 → ERHOLD 05:45
PROVIDERS: ADMIT Internal Medicine; ATTEND Internal Medicine
DX: R07.89 Other chest pain (principal); E11.40 Type 2 diabetes mellitus with diabetic neuropathy, unspecified; I10 Essential (primary) hypertension; E03.9 Hypothyroidism, unspecified; R91.1 Solitary pulmonary nodule; E66.9 Obesity, unspecified; Z86.73 Personal history of transient ischemic attack (TIA), and cerebral infarction without residual deficits; Z79.84 Long term (current) use of oral hypoglycemic drugs; Z79.890 Hormone replacement therapy; Z79.899 Other long term (current) drug therapy; Z20.822 Contact with and (suspected) exposure to COVID-19
CPT/HCPCS: 36415; 71045; 71275; 78452; 80053; 80061; 81003; 83690; 84484; 85025; 85379; 93005; 93017; 96361; 96374; 96375; A9500; G0378; J0153; J1885; J2270; J2405; Q9967; U0002

== ENCOUNTER 2022-07-09 14:29 | Observation (INO) | payer SELFPAY ==
[2022-07-09] MEDS ORDERED: Lorazepam 2 MG/ML VIAL ONE (14:57)
[2022-07-09 14:58] LABS: #Lymphocytes 0.3 thou/uL (1.20-3.40); #Neutrophils 2.1 thou/uL (1.40-6.50); %Basophils 0.5 % (0.0-1.0); %Eosinophils 0.6 % (0.0-10.0); %Lymphocytes 10.9 % (21.0-51.0); %Monocytes 1.6 % (0.0-10.0); %Neutrophils 86.4 % (42.0-75.0); Hemoglobin 13.6 g/dL (12.0-16.0); Mean Corpuscular HGB CONC 34.2 g/dL (32.0-36.0); Mean Corpuscular Hemoglobin 28.7 pg (27.0-31.0); Mean Corpuscular Volume 83.8 fL (78.0-98.0); Mean Platelet Volume 8.3 fL (7.4-10.4); Platelet Count 161 thou/uL (130-400); RBC Distribution Width 14.2 % (11.5-14.5); Red Blood Cell (RBC) Count 4.75 mill/uL (4.20-5.40); White Blood Cell (WBC) Count 2.5 thou/uL (4.8-10.8)
[2022-07-09 15:18] LABS: ALT (SGPT) 68 U/L (8-55); AST (SGOT) 67 U/L (5-34); Albumin 3.8 g/dL (3.5-5.0); Alkaline Phosphatase 158 U/L (40-110); Anion Gap 16 mmol/L (10-20); BUN (Urea Nitrogen) 14 mg/dL (9.8-20.1); Bilirubin, Total 0.4 mg/dL (0.2-1.2); Calc. Creatinine Clearance 0 mL/min (70-130); Calcium 8.8 mg/dL (7.8-10.44); Carbon Dioxide 21 mmol/L (22-29); Chloride 105 mmol/L (98-107); Estimated GFR 105; Globulin 3.8 g/dL (2.4-3.5); Glucose 211 mg/dL (70-105); Lipase 15 U/L (8-78); Potassium 3.5 mmol/L (3.5-5.1); Protein, Total 7.6 g/dL (6.0-8.3); Sodium 138 mmol/L (136-145)
[2022-07-09] MEDS ORDERED: Morphine 4 MG/ML VIAL ONE (16:00)
[2022-07-09] MEDS ORDERED: Morphine 2 MG/ML VIAL ONE (16:00)
[2022-07-09 16:02] LABS: Bacteria/HPF None Seen HPF (None Seen); Bilirubin Negative (Negative); Blood, Urine 1+ (Negative); Clarity Clear (Clear); Glucose, Urine (Dipstick) Normal (Negative); Ketone, Urine Negative (Negative); Leukocyte 25 Leu/uL (Negative); Nitrite Negative (Negative); Protein, Urine (Dipstick) Negative (Neg-Trace); RBC/HPF 0-3 HPF (0-3); Urobilinogen Normal mg/dL (Less than 2); WBC/HPF 0-3 HPF (0-3); pH, Urine 5.5 (5.0-9.0)
[2022-07-09 16:03] LABS: Specific Gravity, Urine 1.049 (1.002-1.036)
[2022-07-09 16:26] LABS: SARS-CoV-2 NAA Rapid Test Not Detected (NotDetected)
[2022-07-09] MEDS ORDERED: diphenhydrAMINE 50 MG/ML VIAL ONE ×2 (16:51→16:53)
[2022-07-09] MEDS ORDERED: Ondansetron PF 4 MG/2 ML Vial IVP PRN (17:20)
[2022-07-09] MEDS ORDERED: Senokot S 8.6-50 MG TAB PO PRN (17:20)
[2022-07-09] MEDS ORDERED: Ondansetron ODT 4 MG TAB PO PRN (17:20)
[2022-07-09] MEDS ORDERED: Acetaminophen 325 MG TAB PO PRN (17:20)
[2022-07-09] MEDS ORDERED: Lorazepam 0.5 MG TAB PO PRN (17:24)
[2022-07-09] MEDS ORDERED: HumaLOG 300 UNITS/3 ML VIAL SC PRN (17:25)
[2022-07-09] MEDS ORDERED: Dextrose 5% in Water 1,000 ML IV PRN (17:25)
[2022-07-09] MEDS ORDERED: Morphine 2 MG/ML VIAL SLOW IVP PRN (17:25)
[2022-07-09] MEDS ORDERED: Dextrose 50% Abboject 50 ML SYRINGE SLOW IVP PRN (17:25)
[2022-07-09 18:51] LABS: Troponin I Less than 0.010 ng/mL (< 0.028)
[2022-07-09 19:45] VITALS: BMI 46.5
[2022-07-09] MEDS: Sodium Chloride 0.9% 1,000 ML IV SCH (19:51)
[2022-07-09] MEDS: Gabapentin 300 MG CAP PO SCH (19:51)
[2022-07-09] MEDS: traMADol HCl 50 MG TAB PO SCH (19:52)
[2022-07-09] MEDS: Famotidine/PF 20 mg/2ml Vial SLOW IVP SCH (19:52)
[2022-07-10] MEDS: Sodium Chloride 0.9% 1,000 ML IV SCH ×3 (02:41→18:21)
[2022-07-10] MEDS ORDERED: Levothyroxine Sodium 100 MCG TAB PO SCH (06:00)
[2022-07-10 06:56] LABS: #Eosinphils 0.1 thou/uL (0.0-0.7); #Monocytes 0.3 thou/uL (0.11-0.59); #Neutrophils 2.1 thou/uL (1.40-6.50); %Basophils 0.3 % (0.0-1.0); %Lymphocytes 29.5 % (21.0-51.0); %Monocytes 8.6 % (0.0-10.0); %Neutrophils 58.6 % (42.0-75.0); Hemoglobin 9.5 g/dL (12.0-16.0); Mean Corpuscular HGB CONC 33.9 g/dL (32.0-36.0); Mean Corpuscular Volume 85.4 fL (78.0-98.0); Mean Platelet Volume 8.1 fL (7.4-10.4); Platelet Count 122 thou/uL (130-400); RBC Distribution Width 14.2 % (11.5-14.5); Red Blood Cell (RBC) Count 3.28 mill/uL (4.20-5.40); White Blood Cell (WBC) Count 3.5 thou/uL (4.8-10.8)
[2022-07-10 07:08] LABS: Hemoglobin A1c 9.3 % (4.0-6.0)
[2022-07-10 07:17] LABS: ALT (SGPT) 39 U/L (8-55); AST (SGOT) 31 U/L (5-34); Albumin 2.2 g/dL (3.5-5.0); Alkaline Phosphatase 63 U/L (40-110); Anion Gap 9 mmol/L (10-20); BUN (Urea Nitrogen) 6 mg/dL (9.8-20.1); Bilirubin, Total 0.3 mg/dL (0.2-1.2); Calc. Creatinine Clearance 278 mL/min (70-130); Calcium 5.9 mg/dL (7.8-10.44); Carbon Dioxide 17 mmol/L (22-29); Cardiac Risk 5.6 (Less than 4.5); Chloride 115 mmol/L (98-107); Cholesterol 90 mg/dl (< 200 Desired); Estimated GFR 115; Globulin 2.4 g/dL (2.4-3.5); Glucose 213 mg/dL (70-105); HDL Cholesterol 16 mg/dL (>60 Neg Risk); LDL Cholesterol, Calculated 51 mg/dL; Potassium 2.5 mmol/L (3.5-5.1); Protein, Total 4.6 g/dL (6.0-8.3); Sodium 138 mmol/L (136-145); Triglycerides 115 mg/dL (Less than 150)
[2022-07-10] MEDS ORDERED: metFORMIN 500 MG TAB PO SCH (08:00)
[2022-07-10 08:16] LABS: #Eosinphils 0.1 thou/uL (0.0-0.7); #Lymphocytes 1.2 thou/uL (1.20-3.40); #Monocytes 0.4 thou/uL (0.11-0.59); #Neutrophils 2.6 thou/uL (1.40-6.50); %Basophils 0.4 % (0.0-1.0); %Eosinophils 2.5 % (0.0-10.0); %Lymphocytes 28.9 % (21.0-51.0); %Monocytes 8.3 % (0.0-10.0); %Neutrophils 59.9 % (42.0-75.0); Hemoglobin 11.5 g/dL (12.0-16.0); Mean Corpuscular Hemoglobin 28.1 pg (27.0-31.0); Mean Corpuscular Volume 85.2 fL (78.0-98.0); Mean Platelet Volume 8.1 fL (7.4-10.4); Platelet Count 155 thou/uL (130-400); RBC Distribution Width 14.1 % (11.5-14.5); Red Blood Cell (RBC) Count 4.07 mill/uL (4.20-5.40); White Blood Cell (WBC) Count 4.3 thou/uL (4.8-10.8)
[2022-07-10 08:24] LABS: Anion Gap 11 mmol/L (10-20); BUN (Urea Nitrogen) 7 mg/dL (9.8-20.1); Calc. Creatinine Clearance 213 mL/min (70-130); Calcium 8.1 mg/dL (7.8-10.44); Carbon Dioxide 24 mmol/L (22-29); Chloride 105 mmol/L (98-107); Estimated GFR 108; Glucose 267 mg/dL (70-105); Magnesium 1.6 mg/dL (1.6-2.6); Potassium 3.5 mmol/L (3.5-5.1); Sodium 136 mmol/L (136-145)
[2022-07-10] MEDS ORDERED: Aspirin 81 mg Enteric Coated Tablet PO SCH (09:00)
[2022-07-10] MEDS ORDERED: Citalopram 10 MG TAB PO SCH (09:00)
[2022-07-10] MEDS ORDERED: Enoxaparin Sodium 40 MG/0.4 ML SYRINGE SC SCH (09:00)
[2022-07-10] MEDS ORDERED: Magnesium 2 GM/50 ML(in water) 2 GM in Premix Bag 1 BAG IVPB SCH (09:00)
[2022-07-10] MEDS: traMADol HCl 50 MG TAB PO SCH ×2 (09:54→15:43)
[2022-07-10] MEDS: Gabapentin 300 MG CAP PO SCH (09:54)
[2022-07-10] MEDS: Famotidine/PF 20 mg/2ml Vial SLOW IVP SCH (09:55)
[2022-07-10 16:39] VITALS: BP 161/95; TEMP 97.7
== END 2022-07-10 19:38 | disposition home or self-care (01) ==
LOC: ERS 14:29 → SUATTDRO 14:29 → 2SW 16:57
PROVIDERS: ADMIT Internal Medicine; ATTEND Physician Assistant
DX: R00.0 Tachycardia, unspecified (principal); R07.9 Chest pain, unspecified; R06.02 Shortness of breath; R10.9 Unspecified abdominal pain; I10 Essential (primary) hypertension; E11.9 Type 2 diabetes mellitus without complications; E78.5 Hyperlipidemia, unspecified; E03.9 Hypothyroidism, unspecified; G89.29 Other chronic pain; K76.0 Fatty (change of) liver, not elsewhere classified; K57.30 Diverticulosis of large intestine without perforation or abscess without bleeding; I08.1 Rheumatic disorders of both mitral and tricuspid valves; E86.0 Dehydration; R91.8 Other nonspecific abnormal finding of lung field; E66.9 Obesity, unspecified; Z68.42 Body mass index [BMI] 45.0-49.9, adult; Z86.73 Personal history of transient ischemic attack (TIA), and cerebral infarction without residual deficits; Z79.82 Long term (current) use of aspirin; Z79.84 Long term (current) use of oral hypoglycemic drugs; Z79.890 Hormone replacement therapy; Z79.899 Other long term (current) drug therapy; Z20.822 Contact with and (suspected) exposure to COVID-19
CPT/HCPCS: 36415; 36416; 71275; 74177; 80053; 80061; 81003; 81015; 83036; 83690; 83735; 83880; 84443; 84484; 85025; 93005; 93010; 93306; 94760; 96361; 96372; 96374; 96375; 96376; G0378; J1200; J1650; J2060; J2270; J3475; J7050; Q9967; S0028; U0002

== ENCOUNTER 2022-12-26 16:42 | Inpatient (IN) | payer OTHER, SELFPAY ==
[2022-12-26 17:12] LABS: #Lymphocytes 0.4 thou/uL (1.20-3.40); #Neutrophils 3.2 thou/uL (1.40-6.50); %Basophils 0.1 % (0.0-1.0); %Eosinophils 0.9 % (0.0-10.0); %Lymphocytes 11.3 % (21.0-51.0); %Neutrophils 86.8 % (42.0-75.0); Hemoglobin 12.7 g/dL (12.0-16.0); Mean Corpuscular HGB CONC 32.5 g/dL (32.0-36.0); Mean Corpuscular Hemoglobin 26.8 pg (27.0-31.0); Mean Corpuscular Volume 82.4 fl (78.0-98.0); Mean Platelet Volume 8.9 fL (7.4-10.4); Platelet Count 184 10x3/uL (130-400); Red Blood Cell (RBC) Count 4.72 mill/uL (4.20-5.40); White Blood Cell (WBC) Count 3.7 10x3/uL (4.8-10.8)
[2022-12-26] MEDS ORDERED: Morphine 4 MG/ML VIAL ONE ×2 (17:26→20:12)
[2022-12-26] MEDS ORDERED: Cefepime 2 GM VIAL ONE (17:27)
[2022-12-26] MEDS ORDERED: Acetaminophen 500 MG TAB ONE (17:27)
[2022-12-26] MEDS ORDERED: Vancomycin 1 GM/200 ML (FROZEN) BAG ONE (17:27)
[2022-12-26 17:33] LABS: ALT (SGPT) 52 U/L (8-55); AST (SGOT) 55 U/L (5-34); Albumin 3.7 g/dL (3.5-5.0); Alkaline Phosphatase 122 U/L (40-110); Anion Gap 20 mmol/L (10-20); BUN (Urea Nitrogen) 13 mg/dL (9.8-20.1); Bilirubin, Total 0.4 mg/dL (0.2-1.2); Calc. Creatinine Clearance 0 mL/min (70-130); Calcium 9.3 mg/dL (7.8-10.44); Carbon Dioxide 19 mmol/L (22-29); Chloride 103 mmol/L (98-107); Estimated GFR 107; Globulin 3.9 g/dL (2.4-3.5); Glucose 98 mg/dL (70-105); Lipase 14 U/L (8-78); Potassium 3.4 mmol/L (3.5-5.1); Protein, Total 7.6 g/dL (6.0-8.3); Sodium 139 mmol/L (136-145)
[2022-12-26 17:36] LABS: Actual Bicarbonate (HCO3v) 23 mEq/L (22-28); Base Excess 0.9 mEq/L (-2.0 to +3.0); Calcium, Ionized (venous) 1.05 mmol/L (1.16-1.32); Chloride (VBG) 103 mmol/L (98-106); Hemoglobin (Hb) 12.7 g/dL (11.7-16.0); Potassium (VBG) 3.38 mmol/L (3.70-5.30); Sodium 138.4 mmol/L (133-146); pH (venous) 7.52 (7.32-7.43)
[2022-12-26 17:41] LABS: Bacteria/HPF None Seen HPF (None Seen); Bilirubin Negative (Negative); Blood, Urine Trace (Negative); Clarity Clear (Clear); Glucose, Urine (Dipstick) Normal (Negative); Ketone, Urine Negative (Negative); Leukocyte 25 Leu/uL (Negative); Nitrite Negative (Negative); Protein, Urine (Dipstick) Negative (Neg-Trace); RBC/HPF 0-3 HPF (0-3); Specific Gravity, Urine 1.018 (1.002-1.036); Squamous Epithelial 0-3 HPF (0-3); Urobilinogen Normal mg/dL (Less than 2); WBC/HPF 0-3 HPF (0-3)
[2022-12-26 17:44] LABS: Pregnancy Test - Urine (BHCG) Negative (Negative); Pregu Control Background? CLEAR/WHITE (CLR/WHITE); Pregu Control Bar Appear? YES (CONTROL BAR); Specific Gravity 1.018 (1.002-1.036)
[2022-12-26 17:47] LABS: BHCG - Serum Negative (NEGATIVE); INR-International Normal Ratio 1.1; PTT 27.2 sec (22.9-36.1); Pregs Control Background? CLEAR/WHITE (CLR/WHITE); Pregs Control Bar Appear? YES (CONTROL BAR); Prothrombin Time 14.4 sec (12.0-14.7)
[2022-12-26 18:42] LABS: SARS-CoV-2 NAA Rapid Test Not Detected (NotDetected)
[2022-12-26] MEDS ORDERED: Ibuprofen 200 MG TAB ONE (20:12)
[2022-12-26 20:46] LABS: Lactic Acid 3.6 mmol/L (0.5-2.2)
[2022-12-26] MEDS ORDERED: Dextrose 50% Abboject 50 ML SYRINGE SLOW IVP PRN (21:11)
[2022-12-26] MEDS ORDERED: Dextrose 5% in Water 1,000 ML IV PRN (21:11)
[2022-12-26 22:27] LABS: Troponin I Less than 0.010 ng/mL (< 0.028)
[2022-12-26] MEDS ORDERED: Morphine 4 MG/ML VIAL SLOW IVP SCH (23:30)
[2022-12-26] MEDS ORDERED: Lidocaine 2% Viscous Solution 10 ML, Aluminum & Magnesium Hydroxide 30 ML SSW SCH (23:45)
[2022-12-27 00:41] VITALS: BMI 48.4
[2022-12-27] MEDS ORDERED: VANCOMYCIN 2 GRAM/500 ML BAG 2 GM in Premix Bag 1 BAG IVPB SCH (02:00)
[2022-12-27] MEDS: Ondansetron PF 4 MG/2 ML Vial IVP PRN ×2 (02:12→22:58)
[2022-12-27] MEDS: Morphine 4 MG/ML VIAL SLOW IVP PRN ×4 (02:18→22:58)
[2022-12-27] MEDS ORDERED: diphenhydrAMINE 50 MG/ML VIAL IVP SCH (04:30)
[2022-12-27] MEDS: Cefepime 2 GM in Sodium Chloride 0.9% 100 ML IVPB SCH ×2 (04:46→19:57)
[2022-12-27 04:58] LABS: #Eosinphils 0.1 thou/uL (0.0-0.7); #Lymphocytes 1.1 thou/uL (1.20-3.40); #Monocytes 0.3 thou/uL (0.11-0.59); #Neutrophils 5.5 thou/uL (1.40-6.50); %Basophils 0.2 % (0.0-1.0); %Eosinophils 1.2 % (0.0-10.0); %Lymphocytes 16.1 % (21.0-51.0); %Monocytes 4.6 % (0.0-10.0); %Neutrophils 77.9 % (42.0-75.0); Hemoglobin 10.6 g/dL (12.0-16.0); Mean Corpuscular HGB CONC 32.4 g/dL (32.0-36.0); Mean Corpuscular Hemoglobin 26.7 pg (27.0-31.0); Mean Corpuscular Volume 82.4 fl (78.0-98.0); Mean Platelet Volume 8.7 fL (7.4-10.4); Platelet Count 191 10x3/uL (130-400); Red Blood Cell (RBC) Count 3.98 mill/uL (4.20-5.40); White Blood Cell (WBC) Count 7.1 10x3/uL (4.8-10.8)
[2022-12-27] MEDS: Levothyroxine Sodium 100 MCG TAB PO SCH (05:01)
[2022-12-27 05:08] LABS: Lactic Acid 1.4 mmol/L (0.5-2.2)
[2022-12-27 05:16] LABS: ALT (SGPT) 44 U/L (8-55); AST (SGOT) 45 U/L (5-34); Albumin 3.3 g/dL (3.5-5.0); Alkaline Phosphatase 73 U/L (40-110); Anion Gap 13 mmol/L (10-20); BUN (Urea Nitrogen) 9 mg/dL (9.8-20.1); Bilirubin, Total 0.4 mg/dL (0.2-1.2); Calc. Creatinine Clearance 227 mL/min (70-130); Calcium 8.5 mg/dL (7.8-10.44); Carbon Dioxide 23 mmol/L (22-29); Chloride 103 mmol/L (98-107); Estimated GFR 109; Globulin 3.6 g/dL (2.4-3.5); Glucose 177 mg/dL (70-105); Potassium 3.7 mmol/L (3.5-5.1); Protein, Total 6.9 g/dL (6.0-8.3); Sodium 135 mmol/L (136-145)
[2022-12-27] MEDS ORDERED: Vancomycin 1 GM in Premix Bag 1 BAG IVPB SCH (09:00)
[2022-12-27] MEDS ORDERED: SUMAtriptan Succinate 6 MG/0.5 ML VIAL SC SCH (09:30)
[2022-12-27] MEDS: VANCOMYCIN 1.75 GM/500 ML BAG 1.75 GM in Premix Bag 1 BAG IVPB SCH (14:50)
[2022-12-27] MEDS: Aspirin/APAP/Caffeine Tab (Excedrin Migraine) PO PRN (23:45)
[2022-12-28] MEDS: VANCOMYCIN 1.75 GM/500 ML BAG 1.75 GM in Premix Bag 1 BAG IVPB SCH ×2 (01:15→16:07)
[2022-12-28] MEDS: Morphine 4 MG/ML VIAL SLOW IVP PRN ×3 (03:37→20:36)
[2022-12-28] MEDS: Cefepime 2 GM in Sodium Chloride 0.9% 100 ML IVPB SCH ×2 (04:30→19:43)
[2022-12-28] MEDS: Levothyroxine Sodium 100 MCG TAB PO SCH (04:33)
[2022-12-28 05:30] LABS: Troponin I 0.014 ng/mL (< 0.028)
[2022-12-28] MEDS: DULoxetine 20 MG CAP PO SCH (09:17)
[2022-12-28] MEDS: Lisinopril/Hydrochlorothiazide 20 mg/12.5 mg Tablet PO SCH (09:17)
[2022-12-28] MEDS: Aspirin 325 mg Enteric Coated Tablet PO SCH (09:17)
[2022-12-28] MEDS ORDERED: Iopamidol-370 76% 500 ML 1 ML ONE (12:34)
[2022-12-28 14:09] LABS: Vancomycin, Trough 8.6 ug/mL
[2022-12-28] MEDS: Aspirin/APAP/Caffeine Tab (Excedrin Migraine) PO PRN (14:09)
[2022-12-28] MEDS ORDERED: Senokot 8.6 MG TAB PO SCH (15:00)
[2022-12-28] MEDS: VANCOMYCIN 2 GRAM/500 ML BAG 2 GM in Premix Bag 1 BAG IVPB SCH (16:38)
[2022-12-28] MEDS: Pantoprazole 40 MG VIAL IVP SCH (19:44)
[2022-12-28 20:36] LABS: Magnesium 1.7 mg/dL (1.6-2.6)
[2022-12-28] MEDS: metroNIDAZOLE 500 MG in Premix Bag 1 BAG IVPB SCH (22:37)
[2022-12-28] MEDS: Ipratropium/Albuterol 3 ML NEB NEB SCH (23:44)
[2022-12-29] MEDS: Morphine 4 MG/ML VIAL SLOW IVP PRN ×3 (01:24→19:08)
[2022-12-29] MEDS: VANCOMYCIN 2 GRAM/500 ML BAG 2 GM in Premix Bag 1 BAG IVPB SCH ×2 (02:25→17:07)
[2022-12-29] MEDS: Aspirin/APAP/Caffeine Tab (Excedrin Migraine) PO PRN ×2 (02:33→10:05)
[2022-12-29 05:27] LABS: #Eosinphils 0.1 thou/uL (0.0-0.7); #Lymphocytes 1.4 thou/uL (1.20-3.40); #Monocytes 0.6 thou/uL (0.11-0.59); #Neutrophils 2.6 thou/uL (1.40-6.50); %Basophils 0.2 % (0.0-1.0); %Eosinophils 2.4 % (0.0-10.0); %Lymphocytes 29.3 % (21.0-51.0); %Monocytes 11.9 % (0.0-10.0); %Neutrophils 56.2 % (42.0-75.0); Hemoglobin 10.7 g/dL (12.0-16.0); Mean Corpuscular HGB CONC 32.5 g/dL (32.0-36.0); Mean Corpuscular Hemoglobin 26.9 pg (27.0-31.0); Mean Corpuscular Volume 82.7 fl (78.0-98.0); Mean Platelet Volume 8.8 fL (7.4-10.4); Platelet Count 177 10x3/uL (130-400); RBC Distribution Width 14.8 % (11.5-14.5); Red Blood Cell (RBC) Count 3.96 mill/uL (4.20-5.40); White Blood Cell (WBC) Count 4.6 10x3/uL (4.8-10.8)
[2022-12-29] MEDS: Cefepime 2 GM in Sodium Chloride 0.9% 100 ML IVPB SCH ×2 (05:28→19:39)
[2022-12-29 05:49] LABS: ALT (SGPT) 29 U/L (8-55); AST (SGOT) 25 U/L (5-34); Albumin 3.4 g/dL (3.5-5.0); Alkaline Phosphatase 75 U/L (40-110); Anion Gap 12 mmol/L (10-20); BUN (Urea Nitrogen) 9 mg/dL (9.8-20.1); Bilirubin, Total 0.2 mg/dL (0.2-1.2); Calc. Creatinine Clearance 202 mL/min (70-130); Calcium 8.5 mg/dL (7.8-10.44); Carbon Dioxide 25 mmol/L (22-29); Chloride 101 mmol/L (98-107); Estimated GFR 106; Globulin 3.5 g/dL (2.4-3.5); Glucose 227 mg/dL (70-105); Protein, Total 6.9 g/dL (6.0-8.3); Sodium 134 mmol/L (136-145)
[2022-12-29] MEDS: Levothyroxine Sodium 100 MCG TAB PO SCH (06:09)
[2022-12-29] MEDS: metroNIDAZOLE 500 MG in Premix Bag 1 BAG IVPB SCH ×3 (06:09→22:12)
[2022-12-29] MEDS: HumaLOG 300 UNITS/3 ML VIAL SC PRN (06:09)
[2022-12-29] MEDS: Ipratropium/Albuterol 3 ML NEB NEB SCH ×2 (06:54→10:41)
[2022-12-29] MEDS: Aspirin 325 mg Enteric Coated Tablet PO SCH (10:02)
[2022-12-29] MEDS: Lisinopril/Hydrochlorothiazide 20 mg/12.5 mg Tablet PO SCH (10:03)
[2022-12-29] MEDS: DULoxetine 20 MG CAP PO SCH (10:03)
[2022-12-29] MEDS: Senokot 8.6 MG TAB PO SCH (10:04)
[2022-12-29] MEDS: Pantoprazole 40 MG VIAL IVP SCH ×2 (10:04→20:22)
[2022-12-29] MEDS: Ondansetron PF 4 MG/2 ML Vial IVP PRN (10:17)
[2022-12-29] MEDS ORDERED: Ipratropium/Albuterol 3 ML NEB NEB PRN (11:06)
[2022-12-29] MEDS ORDERED: Ketorolac Tromethamine 30 MG/ML VIAL IVP SCH (14:00)
[2022-12-29] MEDS ORDERED: Simethicone Chewable 80 MG TAB PO PRN (14:44)
[2022-12-30] MEDS: VANCOMYCIN 2 GRAM/500 ML BAG 2 GM in Premix Bag 1 BAG IVPB SCH (03:26)
[2022-12-30 03:29] LABS: Vancomycin, Trough 12.9 ug/mL
[2022-12-30] MEDS: Levothyroxine Sodium 100 MCG TAB PO SCH (05:39)
[2022-12-30] MEDS: Aspirin/APAP/Caffeine Tab (Excedrin Migraine) PO PRN ×2 (05:39→11:23)
[2022-12-30] MEDS: metroNIDAZOLE 500 MG in Premix Bag 1 BAG IVPB SCH (05:39)
[2022-12-30] MEDS: Cefepime 2 GM in Sodium Chloride 0.9% 100 ML IVPB SCH (05:39)
[2022-12-30] MEDS: Senokot 8.6 MG TAB PO SCH (09:10)
[2022-12-30] MEDS: DULoxetine 20 MG CAP PO SCH (09:10)
[2022-12-30] MEDS: Pantoprazole 40 MG VIAL IVP SCH (09:10)
[2022-12-30] MEDS: Aspirin 325 mg Enteric Coated Tablet PO SCH (09:10)
[2022-12-30] MEDS: Lisinopril/Hydrochlorothiazide 20 mg/12.5 mg Tablet PO SCH (09:10)
[2022-12-30] MEDS: HumaLOG 300 UNITS/3 ML VIAL SC PRN (11:24)
[2022-12-30 12:17] VITALS: BP 127/73; TEMP 97.6
== END 2022-12-30 13:21 | disposition home or self-care (01) | DRG 871 ==
LOC: ERS 16:42 → SUATTDRO 16:42 → 2SW 20:52 → OBSVTOIN 12-27 13:02
PROVIDERS: ADMIT Family Medicine; ATTEND Internal Medicine
DX: A41.9 Sepsis, unspecified organism (principal); J96.21 Acute and chronic respiratory failure with hypoxia; Z68.42 Body mass index [BMI] 45.0-49.9, adult; N39.0 Urinary tract infection, site not specified; K57.32 Diverticulitis of large intestine without perforation or abscess without bleeding; Z20.822 Contact with and (suspected) exposure to COVID-19; E11.9 Type 2 diabetes mellitus without complications; E66.01 Morbid (severe) obesity due to excess calories; G43.909 Migraine, unspecified, not intractable, without status migrainosus; F32.A Depression, unspecified; F41.9 Anxiety disorder, unspecified; E78.5 Hyperlipidemia, unspecified; I08.1 Rheumatic disorders of both mitral and tricuspid valves; I10 Essential (primary) hypertension; E03.9 Hypothyroidism, unspecified; Z91.14 Patient's other noncompliance with medication regimen; Z79.899 Other long term (current) drug therapy; Z79.890 Hormone replacement therapy; Z79.84 Long term (current) use of oral hypoglycemic drugs; Z79.82 Long term (current) use of aspirin; Z86.73 Personal history of transient ischemic attack (TIA), and cerebral infarction without residual deficits; Z90.49 Acquired absence of other specified parts of digestive tract; Z90.710 Acquired absence of both cervix and uterus
CPT/HCPCS: 36415; 36416; 51701; 70450; 71045; 71275; 74177; 80053; 80202; 81003; 81015; 81025; 82805; 83605; 83690; 83735; 83880; 84145; 84443; 84484; 84703; 85025; 85610; 85730; 87040; 87086; 87804; 93005; 93306; 94640; 96365; 96367; 96372; 96375; 96376; C9113; G0378; J0692; J1200; J1650; J1815; J1885; J2270; J2405; J3030; J3370; J3370-JW; J3490; J7620; Q9967; U0002

== ENCOUNTER 2023-08-18 17:37 | Inpatient (IN) | payer OTHER, SELFPAY ==
[~2023-08-18 17:37] MED LIST changes: -Iopamidol-370 76% 500 ML 1 ML ONE; +Iopamidol-370 76% 500 ML MDV (1 ML CHARGE) ONE
[2023-08-18 18:44] LABS: #Eosinphils 0.1 thou/uL (0.0-0.7); #Monocytes 0.2 thou/uL (0.11-0.59); #Neutrophils 7.4 thou/uL (1.40-6.50); %Basophils 0.4 % (0.0-1.0); %Eosinophils 0.7 % (0.0-10.0); %Monocytes 2.6 % (0.0-10.0); %Neutrophils 89.9 % (42.0-75.0); Hematocrit 40.4 % (36.0-47.0); Hemoglobin 13.1 g/dL (12.0-16.0); Mean Corpuscular HGB CONC 32.4 g/dL (32.0-36.0); Mean Corpuscular Hemoglobin 25.6 pg (27.0-31.0); Mean Corpuscular Volume 78.9 fl (78.0-98.0); Mean Platelet Volume 10.6 fL (7.4-10.4); Platelet Count 213 10x3/uL (130-400); RBC Distribution Width 16.9 % (11.5-14.5); Red Blood Cell (RBC) Count 5.12 mill/uL (4.20-5.40); White Blood Cell (WBC) Count 8.2 10x3/uL (4.8-10.8)
[2023-08-18 19:03] LABS: ALT (SGPT) 28 U/L (8-55); AST (SGOT) 31 U/L (5-34); Albumin 4.1 g/dL (3.5-5.0); Alkaline Phosphatase 122 U/L (40-110); Anion Gap 19 mmol/L (10-20); BUN (Urea Nitrogen) 12 mg/dL (9.8-20.1); Bilirubin, Total 0.3 mg/dL (0.2-1.2); Calc. Creatinine Clearance 0 mL/min (70-130); Carbon Dioxide 19 mmol/L (22-29); Chloride 99 mmol/L (98-107); Estimated GFR 53; Globulin 3.8 g/dL (2.4-3.5); Lipase 11 U/L (8-78); Potassium 3.7 mmol/L (3.5-5.1); Protein, Total 7.9 g/dL (6.0-8.3); Sodium 133 mmol/L (136-145)
[2023-08-18 19:20] LABS: Glucose 459 mg/dL (70-105)
[2023-08-18] MEDS ORDERED: Piperacillin/Tazobactam 4.5 GM VIAL ONE (19:20)
[2023-08-18 19:31] LABS: INR-International Normal Ratio 1.1; Prothrombin Time 14.4 sec (12.0-14.7)
[2023-08-18 19:32] LABS: PTT 29.3 sec (22.9-36.1)
[2023-08-18 19:40] LABS: Troponin I Less than 0.010 ng/mL (< 0.028)
[2023-08-18] MEDS ORDERED: Ondansetron PF 4 MG/2 ML Vial ONE (19:46)
[2023-08-18] MEDS ORDERED: Dicyclomine 20 MG/2 ML VIAL ONE (19:46)
[2023-08-18 20:27] LABS: Actual Bicarbonate (HCO3v) 18.8 mEq/L (22-28); Base Excess -3.6 mEq/L (-2.0 to +3.0); Chloride (VBG) 100 mmol/L (98-106); Hematocrit-VBG 37 % (36.0-47.0); Hemoglobin (Hb) 12.5 g/dL (11.7-16.0); Sodium 133 mmol/L (133-146); pH (venous) 7.463 (7.32-7.43)
[2023-08-18] MEDS ORDERED: Morphine 2 MG/ML VIAL ONE (21:37)
[2023-08-18 21:42] LABS: Lactic Acid 3.1 mmol/L (0.5-2.2)
[2023-08-18 22:03] LABS: Bacteria/HPF None Seen HPF (None Seen); Bilirubin Negative (Negative); Blood, Urine Negative (Negative); CAUTI Indications for Culture Pelvic or flank pain; Clarity Clear (Clear); Glucose, Urine (Dipstick) >=1000 mg/dL (Negative); Ketone, Urine Trace mg/dL (Negative); Leukocyte 25 Leu/uL (Negative); Nitrite Negative (Negative); Protein, Urine (Dipstick) 70 mg/dL (Neg-Trace); RBC/HPF 0-3 HPF (0-3); Specific Gravity, Urine 1.048 (1.002-1.036); Urobilinogen Normal mg/dL (Less than 2); pH, Urine 5.5 (5.0-9.0)
[2023-08-18 22:04] LABS: Urine Culture Reflex No No
[2023-08-18] MEDS ORDERED: Ondansetron PF 4 MG/2 ML Vial IVP PRN (22:09)
[2023-08-18] MEDS ORDERED: Dextrose 5% in Water 1,000 ML IV PRN (22:10)
[2023-08-18] MEDS ORDERED: Glucagon 1 MG/ML KIT IM PRN (22:10)
[2023-08-18] MEDS ORDERED: HumaLOG 300 UNITS/3 ML VIAL SC PRN ×2 (22:10)
[2023-08-18] MEDS ORDERED: Dextrose 50% Abboject 50 ML SYRINGE SLOW IVP PRN (22:10)
[2023-08-18] MEDS ORDERED: Sodium Chloride 0.9% 1,000 ML IV SCH (22:15)
[2023-08-18] MEDS ORDERED: Benzonatate 100 MG CAP PO PRN (22:39)
[2023-08-18] MEDS ORDERED: Ipratropium/Albuterol 3 ML NEB EZPAP PRN (22:39)
[2023-08-18 22:41] LABS: SARS-CoV-2 NAA Rapid Test Not Detected (NotDetected)
[2023-08-18 23:00] LABS: Troponin I 0.015 ng/mL (< 0.028)
[2023-08-19 00:29] VITALS: BMI 39.4
[2023-08-19 00:42] LABS: Lactic Acid 2.4 mmol/L (0.5-2.2)
[2023-08-19] MEDS: Piperacillin/Tazobactam 3.375 GM in Sodium Chloride 0.9% 100 ML IVPB SCH ×4 (00:50→23:47)
[2023-08-19] MEDS: Acetaminophen 325 MG TAB PO PRN ×3 (01:47→16:35)
[2023-08-19] MEDS: Morphine 2 MG/ML VIAL SLOW IVP PRN ×3 (02:57→20:55)
[2023-08-19 08:01] LABS: #Eosinphils 0.1 thou/uL (0.0-0.7); #Monocytes 0.2 thou/uL (0.11-0.59); #Neutrophils 3.6 thou/uL (1.40-6.50); %Basophils 0.4 % (0.0-1.0); %Eosinophils 2.7 % (0.0-10.0); %Lymphocytes 24.7 % (21.0-51.0); %Monocytes 4.4 % (0.0-10.0); %Neutrophils 67.4 % (42.0-75.0); Hematocrit 35.4 % (36.0-47.0); Hemoglobin 11.3 g/dL (12.0-16.0); Mean Corpuscular HGB CONC 31.9 g/dL (32.0-36.0); Mean Corpuscular Hemoglobin 25.9 pg (27.0-31.0); Mean Corpuscular Volume 81.2 fl (78.0-98.0); Mean Platelet Volume 10.4 fL (7.4-10.4); Platelet Count 173 10x3/uL (130-400); RBC Distribution Width 16.8 % (11.5-14.5); Red Blood Cell (RBC) Count 4.36 mill/uL (4.20-5.40); White Blood Cell (WBC) Count 5.3 10x3/uL (4.8-10.8)
[2023-08-19 08:07] LABS: Hemoglobin A1c 12.2 % (4.0-6.0)
[2023-08-19 08:25] LABS: Anion Gap 15 mmol/L (10-20); BUN (Urea Nitrogen) 11 mg/dL (9.8-20.1); Calc. Creatinine Clearance 158 mL/min (70-130); Carbon Dioxide 22 mmol/L (22-29); Chloride 104 mmol/L (98-107); Estimated GFR 103; Glucose 223 mg/dL (70-105); Potassium 3.5 mmol/L (3.5-5.1); Sodium 137 mmol/L (136-145)
[2023-08-19] MEDS ORDERED: Insulin Glargine 30 UNITS/0.3 ML VIAL SC SCH ×2 (08:30→21:00)
[2023-08-19] MEDS ORDERED: FLU VACC QS2023-24(6MOS UP)/PF 60 MCG/0.5 ML SYRINGE IM ONE (09:00)
[2023-08-19 10:04] LABS: Lactic Acid 1.9 mmol/L (0.5-2.2)
[2023-08-20] MEDS: HumaLOG 300 UNITS/3 ML VIAL SC PRN ×2 (06:16→12:11)
[2023-08-20] MEDS: Acetaminophen 325 MG TAB PO PRN (06:16)
[2023-08-20 06:52] LABS: Hematocrit 36.4 % (36.0-47.0); Hemoglobin 11.6 g/dL (12.0-16.0); Mean Corpuscular HGB CONC 31.9 g/dL (32.0-36.0); Mean Corpuscular Hemoglobin 25.7 pg (27.0-31.0); Mean Corpuscular Volume 80.7 fl (78.0-98.0); Mean Platelet Volume 10.2 fL (7.4-10.4); Platelet Count 172 10x3/uL (130-400); RBC Distribution Width 17.1 % (11.5-14.5); Red Blood Cell (RBC) Count 4.51 mill/uL (4.20-5.40); White Blood Cell (WBC) Count 3.7 10x3/uL (4.8-10.8)
[2023-08-20 07:11] LABS: Delete Auto Diff?? YES; Manual Diff?? YES
[2023-08-20 07:22] LABS: Anion Gap 12 mmol/L (10-20); BUN (Urea Nitrogen) 12 mg/dL (9.8-20.1); Calc. Creatinine Clearance 156 mL/min (70-130); Carbon Dioxide 27 mmol/L (22-29); Chloride 100 mmol/L (98-107); Estimated GFR 103; Glucose 358 mg/dL (70-105); Potassium 3.8 mmol/L (3.5-5.1); Sodium 135 mmol/L (136-145)
[2023-08-20 08:20] VITALS: TEMP 97.7
[2023-08-20 08:22] LABS: Band 4 % (5-11); CellaVision Operator ID LAB.GE; Eosinophils 1 % (0-10); Lymphocytes 25 % (21-51); Monocytes 8 % (0-10); Neutrophil 59 % (42-75); Platelet Adequacy Comment Platelets Normal; Polychromasia SLIGHT = 2-3 cells HPF (0-2); Reactive Lymphocytes 2 % (0-10); Smudge Cells 11.9 %; Total Cell Count 101
[2023-08-20] MEDS ORDERED: Insulin Glargine 30 UNITS/0.3 ML VIAL SC SCH (09:00)
[2023-08-20] MEDS: Piperacillin/Tazobactam 3.375 GM in Sodium Chloride 0.9% 100 ML IVPB SCH (09:36)
[2023-08-20 13:00] VITALS: BP 104/73
== END 2023-08-20 14:45 | disposition home or self-care (01) | DRG 872 ==
LOC: ERS 17:37 → SJJU 22:09 → OBSVTOIN 08-19 13:46
PROVIDERS: ADMIT Internal Medicine; ATTEND Internal Medicine
DX: A41.9 Sepsis, unspecified organism (principal); N17.9 Acute kidney failure, unspecified; E87.20 Acidosis, unspecified; E87.1 Hypo-osmolality and hyponatremia; K57.32 Diverticulitis of large intestine without perforation or abscess without bleeding; R65.20 Severe sepsis without septic shock; I10 Essential (primary) hypertension; E78.5 Hyperlipidemia, unspecified; E03.9 Hypothyroidism, unspecified; E11.42 Type 2 diabetes mellitus with diabetic polyneuropathy; E11.65 Type 2 diabetes mellitus with hyperglycemia; G89.29 Other chronic pain; F41.9 Anxiety disorder, unspecified; Z20.822 Contact with and (suspected) exposure to COVID-19; F32.A Depression, unspecified; Z79.82 Long term (current) use of aspirin; Z79.84 Long term (current) use of oral hypoglycemic drugs; Z79.899 Other long term (current) drug therapy; Z86.73 Personal history of transient ischemic attack (TIA), and cerebral infarction without residual deficits; Z90.49 Acquired absence of other specified parts of digestive tract; Z90.710 Acquired absence of both cervix and uterus
CPT/HCPCS: 36415; 36416; 71045; 74177; 80048; 80053; 81001; 82010; 82805; 83036; 83605; 83690; 83880; 84484; 85025; 85610; 85730; 87040; 93005; 94760; 96361; 96365; 96372; 96375; 96376; G0378; J1815; J2272; J2405; J2543; J3490; J7050; Q9967

== ENCOUNTER 2025-08-26 16:13 | Inpatient (IN) | payer OTHER ==
[2025-08-26 16:38] LABS: Actual Bicarbonate (HCO3v) 16.8 mEq/L (22-28); Base Excess -7.2 mEq/L (-2.0 to +3.0); Calcium, Ionized (venous) 1.00 mmol/L (1.16-1.32); Chloride (VBG) 109 mmol/L (98-106); Hematocrit-VBG 36 % (36.0-47.0); Hemoglobin (Hb) 12.3 g/dL (11.7-16.0); Sodium 140 mmol/L (133-146)
[2025-08-26 16:52] LABS: Hematocrit 39.1 % (36.0-47.0); Hemoglobin 12.8 g/dL (12.0-16.0); Mean Corpuscular Hemoglobin 25.9 pg (27.0-31.0); Mean Corpuscular Volume 79.1 fL (78.0-98.0); Platelet Count 183 10x3/uL (130-400); Red Blood Cell (RBC) Count 4.94 mill/uL (4.20-5.40); White Blood Cell (WBC) Count 3.84 10x3/uL (4.8-10.8)
[2025-08-26 16:58] LABS: Lipase 10 U/L (8-78)
[2025-08-26 17:00] LABS: Acetaminophen Less than 10 mcg/mL (Less than 10); Salicylate Less than 8.0 mg/dL (Less than 8.0)
[2025-08-26 17:15] LABS: ALT (SGPT) 15 U/L (Less than 34); AST (SGOT) 24 U/L (11-34); Albumin 2.8 g/dL (3.1-4.5); Alkaline Phosphatase 97 U/L (40-110); Anion Gap 15 mmol/L (10-20); Anisocytosis SLIGHT = 6-15 cells HPF (0-5); BUN (Urea Nitrogen) 16 mg/dL (9.8-20.1); Bilirubin, Total 0.3 mg/dL (0.3-1.2); CK (CPK) 41 U/L (29-168); Calc. Creatinine Clearance 0 mL/min (70-130); Calcium 7.4 mg/dL (7.8-10.44); Carbon Dioxide 16 mmol/L (22-29); Chloride 112 mmol/L (98-107); Globulin 2.5 g/dL (2.4-3.5); Glucose 276 mg/dL (70-105); Platelet Adequacy Comment Platelets Normal; Potassium 2.2 mmol/L (3.5-5.1); Smudge Cells 9.3 %; Sodium 141 mmol/L (136-145)
[2025-08-26] MEDS ORDERED: Aspirin Chewable 81 MG TAB ONE (19:08)
[2025-08-26] MEDS ORDERED: cefTRIAXone (ROCEPHIN) 2 GM VIAL ONE (19:22)
[2025-08-26] MEDS ORDERED: Azithromycin 500 MG VIAL ONE (19:40)
[2025-08-26] MEDS ORDERED: Ondansetron PF 4 MG/2 ML Vial IVP PRN (19:48)
[2025-08-26] MEDS ORDERED: Dextrose 50% Abboject 50 ML SYRINGE SLOW IVP PRN (19:53)
[2025-08-26] MEDS ORDERED: Glucagon 1 MG/ML KIT IM PRN (19:53)
[2025-08-26] MEDS ORDERED: Pharmacy to Dose: VANCOMYCIN IVPB PRN (19:55)
[2025-08-26 19:56] LABS: Anion Gap 15 mmol/L (10-20); BUN (Urea Nitrogen) 18 mg/dL (9.8-20.1); Calc. Creatinine Clearance 0 mL/min (70-130); Calcium 8.9 mg/dL (7.8-10.44); Carbon Dioxide 20 mmol/L (22-29); Chloride 104 mmol/L (98-107); Glucose 355 mg/dL (70-105); Potassium 2.7 mmol/L (3.5-5.1); Sodium 136 mmol/L (136-145)
[2025-08-26] MEDS ORDERED: Norepinephrine 8 MG/0.9% NS 250 ML ONE (20:07)
[2025-08-26 20:31] LABS: Magnesium 1.4 mg/dL (1.6-2.6)
[2025-08-26] MEDS ORDERED: Magnesium 2 GM/50 ML BAG (IN WATER) ONE (20:38)
[2025-08-26 20:57] LABS: Bacteria/HPF None Seen HPF (None Seen); CAUTI Indications for Culture Pelvic or flank pain; Glucose, Urine (Dipstick) 500 mg/dL (Negative); Leukocyte Negative Leu/uL (Negative); Protein, Urine (Dipstick) Negative (Neg-Trace); RBC/HPF 0-3 HPF (0-3); WBC/HPF 0-3 HPF (0-3); Yeast-Budding Rare HPF (None Seen)
[2025-08-26 21:01] LABS: Cocaine Metabolite Screen Negative (Negative); THC/Cannabinoid Screen Negative (Negative); Tricyclic Screen Negative (Negative)
[2025-08-26 21:16] LABS: Specific Gravity, Urine Greater than 1.036 (1.002-1.036)
[2025-08-26 21:17] LABS: Urine Culture Reflex No No
[2025-08-26] MEDS ORDERED: Calcium Carbonate 500 MG ChewTAB PO PRN (21:45)
[2025-08-26 22:03] VITALS: BMI 37.4
[2025-08-26] MEDS: Potassium Bicarbonate/Cit Ac 20 MEQ TAB PO SCH (22:08)
[2025-08-26] MEDS: Acetaminophen 325 MG TAB PO PRN (22:09)
[2025-08-26] MEDS: 1/2 NS w/Potassium 20 mEq 1,000 ML IV SCH (22:10)
[2025-08-26] MEDS: Vancomycin (BATCH) 2.5 GM in Premix 1 BAG IVPB SCH (22:37)
[2025-08-27 04:29] LABS: Hematocrit 33.9 % (36.0-47.0); Hemoglobin 10.6 g/dL (12.0-16.0); Mean Corpuscular Hemoglobin 25.7 pg (27.0-31.0); Mean Corpuscular Volume 82.3 fL (78.0-98.0); Platelet Count 164 10x3/uL (130-400); Red Blood Cell (RBC) Count 4.12 mill/uL (4.20-5.40); White Blood Cell (WBC) Count 7.08 10x3/uL (4.8-10.8)
[2025-08-27 04:52] LABS: Platelet Adequacy Comment Platelets Normal; Polychromasia SLIGHT = 2-3 cells HPF (0-2)
[2025-08-27 04:53] LABS: ALT (SGPT) 19 U/L (Less than 34); AST (SGOT) 22 U/L (11-34); Albumin 2.8 g/dL (3.1-4.5); Alkaline Phosphatase 79 U/L (40-110); Anion Gap 11 mmol/L (10-20); BUN (Urea Nitrogen) 11 mg/dL (9.8-20.1); Bilirubin, Total 0.2 mg/dL (0.3-1.2); Calc. Creatinine Clearance 198 mL/min (70-130); Calcium 8.3 mg/dL (7.8-10.44); Carbon Dioxide 21 mmol/L (22-29); Chloride 110 mmol/L (98-107); Globulin 2.9 g/dL (2.4-3.5); Glucose 354 mg/dL (70-105); Magnesium 1.8 mg/dL (1.6-2.6); Potassium 4.3 mmol/L (3.5-5.1); Sodium 138 mmol/L (136-145)
[2025-08-27] MEDS: Pantoprazole 40 MG VIAL IVP SCH (09:10)
[2025-08-27] MEDS: Vancomycin 1.5 GM / NS 500 ML VIAL-2-BAG IVPB SCH (09:10)
[2025-08-27] MEDS: FLU (Fluarix Triv) 25-26 (6MOS UP)/PF 45 MCG/0.5 ML Syringe IM ONE (09:11)
[2025-08-27 14:27] LABS: #Basophils Less than 0.03 10x3/uL (0.0-0.2); #Eosinophils 0.11 10x3/uL (0.0-0.7); #Monocytes 0.27 10x3/uL (0.11-0.59); #Neutrophils 4.05 10x3/uL (1.40-6.50); %Basophils 0.4 % (0.0-1.0); %Eosinophils 2.0 % (0.0-10.0); %Lymphocytes 18.9 % (21.0-51.0); %Monocytes 4.9 % (0.0-10.0); %Neutrophils 73.4 % (42.0-75.0); Hematocrit 35.4 % (36.0-47.0); Hemoglobin 11.0 g/dL (12.0-16.0); Mean Corpuscular Hemoglobin 25.9 pg (27.0-31.0); Mean Corpuscular Volume 83.3 fL (78.0-98.0); Platelet Count 136 10x3/uL (130-400); Red Blood Cell (RBC) Count 4.25 mill/uL (4.20-5.40); White Blood Cell (WBC) Count 5.51 10x3/uL (4.8-10.8)
[2025-08-27] MEDS: Insulin Glargine 30 UNITS/0.3 ML VIAL SC SCH (18:39)
[2025-08-27 20:21] LABS: Hematocrit 35.0 % (36.0-47.0); Hemoglobin 10.8 g/dL (12.0-16.0)
[2025-08-28 00:31] LABS: Campy jejuni + coli by PCR Negative (Negative); STEC Shiga Toxin 1+2 Negative (Negative); Salmonella spp. by PCR Negative (Negative); Shigella spp + EIEC by PCR Negative (Negative)
[2025-08-28 05:27] LABS: #Basophils 0.03 10x3/uL (0.0-0.2); #Eosinophils 0.08 10x3/uL (0.0-0.7); #Monocytes 0.41 10x3/uL (0.11-0.59); #Neutrophils 3.00 10x3/uL (1.40-6.50); %Basophils 0.6 % (0.0-1.0); %Eosinophils 1.6 % (0.0-10.0); %Lymphocytes 29.4 % (21.0-51.0); %Monocytes 8.2 % (0.0-10.0); %Neutrophils 60.0 % (42.0-75.0); Hematocrit 34.7 % (36.0-47.0); Hemoglobin 10.9 g/dL (12.0-16.0); Mean Corpuscular Hemoglobin 25.5 pg (27.0-31.0); Mean Corpuscular Volume 81.3 fL (78.0-98.0); Platelet Count 151 10x3/uL (130-400); Red Blood Cell (RBC) Count 4.27 mill/uL (4.20-5.40); White Blood Cell (WBC) Count 5.00 10x3/uL (4.8-10.8)
[2025-08-28 05:42] LABS: Vancomycin, Random 23.2 ug/mL (See Comment)
[2025-08-28 05:49] LABS: ALT (SGPT) 18 U/L (Less than 34); AST (SGOT) 24 U/L (11-34); Albumin 2.9 g/dL (3.1-4.5); Alkaline Phosphatase 86 U/L (40-110); Anion Gap 14 mmol/L (10-20); BUN (Urea Nitrogen) 11 mg/dL (9.8-20.1); Bilirubin, Total 0.1 mg/dL (0.3-1.2); Calc. Creatinine Clearance 171 mL/min (70-130); Calcium 8.7 mg/dL (7.8-10.44); Carbon Dioxide 25 mmol/L (22-29); Chloride 104 mmol/L (98-107); Globulin 3.0 g/dL (2.4-3.5); Glucose 378 mg/dL (70-105); Magnesium 1.5 mg/dL (1.6-2.6); Potassium 3.7 mmol/L (3.5-5.1); Sodium 139 mmol/L (136-145)
[2025-08-28] MEDS: Ketorolac Tromethamine 30 MG (1 mL) VIAL IVP SCH (06:26)
[2025-08-28] MEDS: Acetaminophen/Codeine 30-300mg Tablet PO SCH (09:25)
[2025-08-28 10:31] LABS: Potassium (VBG) 2.13 mmol/L (3.70-5.30)
[2025-08-28] MEDS: Magnesium Sulfate In Water 4 GM in Premix 1 BAG IVPB SCH (13:00)
[2025-08-28 13:56] LABS: Hematocrit 37.6 % (36.0-47.0); Hemoglobin 11.7 g/dL (12.0-16.0); Platelet Count 167 10x3/uL (130-400)
[2025-08-28] MEDS: GoLYTELY 4,000 ml Bottle PO SCH (16:32)
[2025-08-28] MEDS: Pantoprazole 40 MG VIAL IVP SCH (21:32)
[2025-08-28] MEDS: Vancomycin HCl 1.25 GM in Sodium Chloride 0.9% 250 ML 250 ML IVPB SCH (21:33)
[2025-08-29] MEDS: diphenhydrAMINE 50 MG/ML VIAL IVP SCH (00:15)
[2025-08-29] MEDS: Acetaminophen/Codeine 30-300mg Tablet PO SCH (00:15)
[2025-08-29] MEDS: Metoclopramide HCl 10 MG (2 mL) VIAL IVP SCH (00:15)
[2025-08-29 05:55] LABS: #Basophils Less than 0.03 10x3/uL (0.0-0.2); #Eosinophils 0.07 10x3/uL (0.0-0.7); #Monocytes 0.39 10x3/uL (0.11-0.59); #Neutrophils 2.17 10x3/uL (1.40-6.50); %Basophils 0.5 % (0.0-1.0); %Eosinophils 1.6 % (0.0-10.0); %Lymphocytes 37.9 % (21.0-51.0); %Monocytes 9.1 % (0.0-10.0); %Neutrophils 50.7 % (42.0-75.0); Hematocrit 34.4 % (36.0-47.0); Hemoglobin 10.8 g/dL (12.0-16.0); Mean Corpuscular Hemoglobin 25.4 pg (27.0-31.0); Mean Corpuscular Volume 80.9 fL (78.0-98.0); Platelet Count 155 10x3/uL (130-400); Red Blood Cell (RBC) Count 4.25 mill/uL (4.20-5.40); White Blood Cell (WBC) Count 4.28 10x3/uL (4.8-10.8)
[2025-08-29 06:11] LABS: Vancomycin, Random 20.5 ug/mL (See Comment)
[2025-08-29 06:15] LABS: ALT (SGPT) 21 U/L (Less than 34); AST (SGOT) 28 U/L (11-34); Albumin 2.9 g/dL (3.1-4.5); Alkaline Phosphatase 67 U/L (40-110); Anion Gap 13 mmol/L (10-20); BUN (Urea Nitrogen) 7 mg/dL (9.8-20.1); Bilirubin, Total 0.2 mg/dL (0.3-1.2); Calc. Creatinine Clearance 241 mL/min (70-130); Calcium 8.6 mg/dL (7.8-10.44); Carbon Dioxide 28 mmol/L (22-29); Chloride 104 mmol/L (98-107); Globulin 3.1 g/dL (2.4-3.5); Glucose 261 mg/dL (70-105); Magnesium 1.9 mg/dL (1.6-2.6); Potassium 3.7 mmol/L (3.5-5.1); Sodium 141 mmol/L (136-145)
[2025-08-29 06:57] LABS: Bacteria/HPF None Seen HPF (None Seen); CAUTI Indications for Culture Dysuria,urgency,freq; Glucose, Urine (Dipstick) 500 mg/dL (Negative); Leukocyte Negative Leu/uL (Negative); Protein, Urine (Dipstick) Negative (Neg-Trace); RBC/HPF 0-3 HPF (0-3); Specific Gravity, Urine 1.012 (1.002-1.036); WBC/HPF 0-3 HPF (0-3)
[2025-08-29 07:02] LABS: Urine Culture Reflex No No
[2025-08-29] MEDS ORDERED: GLYCOPYRROLATE/PF 0.2 MG/ML VIAL ONE (07:54)
[2025-08-29] MEDS ORDERED: PROPOFOL 200 MG/20 ML VIAL ONE (08:20)
[2025-08-29] MEDS ORDERED: Albuterol HFA (OR) 200 PUFF INH ONE (08:20)
[2025-08-29] MEDS ORDERED: EPINEPHrine 1 MG/10 ML Abboject SYRINGE ONE (08:25)
[2025-08-29] MEDS: Magnesium 2 GM/50 ML(in water) 2 GM in Premix 1 BAG IVPB SCH (11:55)
[2025-08-29] MEDS: Insulin Glargine 30 UNITS/0.3 ML VIAL SC SCH (14:09)
[2025-08-30 05:43] LABS: #Basophils Less than 0.03 10x3/uL (0.0-0.2); #Eosinophils 0.08 10x3/uL (0.0-0.7); #Monocytes 0.33 10x3/uL (0.11-0.59); #Neutrophils 1.73 10x3/uL (1.40-6.50); %Basophils 0.5 % (0.0-1.0); %Eosinophils 2.2 % (0.0-10.0); %Lymphocytes 41.2 % (21.0-51.0); %Monocytes 8.9 % (0.0-10.0); %Neutrophils 46.9 % (42.0-75.0); Hematocrit 37.9 % (36.0-47.0); Hemoglobin 11.9 g/dL (12.0-16.0); Mean Corpuscular Hemoglobin 25.6 pg (27.0-31.0); Mean Corpuscular Volume 81.7 fL (78.0-98.0); Platelet Count 168 10x3/uL (130-400); Red Blood Cell (RBC) Count 4.64 mill/uL (4.20-5.40); White Blood Cell (WBC) Count 3.69 10x3/uL (4.8-10.8)
[2025-08-30 06:02] LABS: Anion Gap 14 mmol/L (10-20); BUN (Urea Nitrogen) 9 mg/dL (9.8-20.1); Calc. Creatinine Clearance 235 mL/min (70-130); Calcium 9.3 mg/dL (7.8-10.44); Carbon Dioxide 23 mmol/L (22-29); Chloride 102 mmol/L (98-107); Glucose 320 mg/dL (70-105); Potassium 3.9 mmol/L (3.5-5.1); Sodium 135 mmol/L (136-145)
[2025-08-30 06:03] LABS: CRP, High Sensitivity at Bryan 1.71 mg/dL (< or = 0.5)
[2025-08-30] MEDS ORDERED: Insulin Glargine 30 UNITS/0.3 ML VIAL SC SCH (09:00)
[2025-08-30] MEDS ORDERED: Famotidine/PF 20 mg/2ml Vial ONE (09:28)
[2025-08-30] MEDS ORDERED: Ondansetron PF 4 MG/2 ML Vial ONE (09:34)
[2025-08-30] MEDS ORDERED: Ketorolac Tromethamine 30 MG (1 mL) VIAL ONE (09:34)
[2025-08-30] MEDS ORDERED: Rocuronium Bromide 10 MG/ML (10ML VIAL) ONE (09:34)
[2025-08-30] MEDS ORDERED: SUGAMMADEX SODIUM 200 MG/2 ML VIAL ONE (09:35)
[2025-08-30] MEDS ORDERED: Bupivacaine 0.25% HCL 30 ML VIAL ONE (09:50)
[2025-08-30] MEDS ORDERED: fentaNYL PF 100 MCG/2 ML SYRINGE ONE (10:46)
[2025-08-30] MEDS ORDERED: PACU-Morphine 4MG/ML VIAL SLOW IVP PRN (10:48)
[2025-08-30] MEDS: Insulin Glargine 30 UNITS/0.3 ML VIAL SC SCH (14:31)
[2025-08-30 15:49] VITALS: BP 152/82; TEMP 98.1
[2025-08-31] MEDS ORDERED: Insulin Glargine 30 UNITS/0.3 ML VIAL SC SCH (09:00)
== END 2025-08-30 16:18 | disposition home or self-care (01) | DRG 853 ==
LOC: ERS 16:13 → IMCU/EMU 19:52 → T4-B 08-27 18:40
PROVIDERS: ADMIT Internal Medicine; ATTEND Internal Medicine
PROC: 3E03329 Introduction of Other Anti-infective into Peripheral Vein, Percutaneous Approach (ICD-10-PCS; 2025-08-27)
PROC: 3E033XZ Introduction of Vasopressor into Peripheral Vein, Percutaneous Approach (ICD-10-PCS; 2025-08-27)
PROC: 3E02340 Introduction of Influenza Vaccine into Muscle, Percutaneous Approach (ICD-10-PCS; 2025-08-27)
PROC: 0DB68ZZ Excision of Stomach, Via Natural or Artificial Opening Endoscopic (ICD-10-PCS; principal; 2025-08-29)
PROC: 0DJD8ZZ Inspection of Lower Intestinal Tract, Via Natural or Artificial Opening Endoscopic (ICD-10-PCS; 2025-08-29)
PROC: 06BY4ZC Excision of Hemorrhoidal Plexus, Percutaneous Endoscopic Approach (ICD-10-PCS; 2025-08-30)
DX: A41.9 Sepsis, unspecified organism (principal); E11.10 Type 2 diabetes mellitus with ketoacidosis without coma; R51.9 Headache, unspecified; I10 Essential (primary) hypertension; E03.9 Hypothyroidism, unspecified; F41.9 Anxiety disorder, unspecified; K64.2 Third degree hemorrhoids; E87.6 Hypokalemia; E83.42 Hypomagnesemia; F32.A Depression, unspecified; E66.9 Obesity, unspecified; Z23 Encounter for immunization; Z90.49 Acquired absence of other specified parts of digestive tract; Z98.891 History of uterine scar from previous surgery; Z79.4 Long term (current) use of insulin; Z86.73 Personal history of transient ischemic attack (TIA), and cerebral infarction without residual deficits; Z90.710 Acquired absence of both cervix and uterus; Z87.19 Personal history of other diseases of the digestive system; Z68.37 Body mass index [BMI] 37.0-37.9, adult; Z79.899 Other long term (current) drug therapy; Z79.84 Long term (current) use of oral hypoglycemic drugs; K31.7 Polyp of stomach and duodenum; K57.30 Diverticulosis of large intestine without perforation or abscess without bleeding; E11.42 Type 2 diabetes mellitus with diabetic polyneuropathy; R07.9 Chest pain, unspecified; R19.7 Diarrhea, unspecified; R65.20 Severe sepsis without septic shock; Z91.148 Patient's other noncompliance with medication regimen for other reason
CPT/HCPCS: 36415; 36416; 70450; 71045; 71275; 80048; 80053; 80202; 80306; 80307; 81001; 82010; 82550; 82805; 83605; 83690; 83735; 83880; 84100; 84484; 85025; 85379; 86141; 87040; 87081; 87324; 87428; 87449; 87505; 88304; 88305; 88342; 90656; 93005; 93306; 94760; 96365; 96367; J0165; J0169; J0456; J0665; J0692; J0696; J1100; J1200; J1308; J1815; J1885; J2405; J2470; J2704; J2765; J3010; J3373; J3475; J3480; J3490; J7030; J7050; J7120; Q9967